=== PATIENT | female | born 1940 | race Caucasian/White ===

== ENCOUNTER → 2018-03-02 | Outpatient (CLI) | payer MEDICARE, OTHER | LOC: M WHC 14:30 | DX: Z13.828 Encounter for screening for other musculoskeletal disorder (principal); M85.851 Other specified disorders of bone density and structure, right thigh; M85.852 Other specified disorders of bone density and structure, left thigh | CPT/HCPCS: 77080 ==

== ENCOUNTER → 2018-05-03 | Outpatient (REF) | payer MEDICARE, OTHER ==
[2018-05-03 13:02] LABS: ALBUMIN 3.8 GM/DL (3.2-5.2); ALKALINE PHOSPHATASE 102 U/L (45-117); ALT/SGPT 20 U/L (12-78); ANION GAP 6 MEQ/L (8-16); AST/SGOT 21 U/L (7-37); BILIRUBIN,TOTAL 0.3 MG/DL (0.2-1.0); BLOOD UREA NITROGEN 19 MG/DL (7-18); CALCIUM LEVEL 9.4 MG/DL (8.8-10.2); CARBON DIOXIDE LEVEL 29 MEQ/L (21-32); CHLORIDE LEVEL 104 MEQ/L (98-107); CREATININE FOR GFR 0.92 MG/DL (0.55-1.30); GLOMERULAR FILTRATION RATE > 60.0 (>39); GLUCOSE, FASTING 98 MG/DL (70-100); PHOSPHORUS LEVEL 3.4 MG/DL (2.5-4.9); POTASSIUM SERUM 4.7 MEQ/L (3.5-5.1); SODIUM LEVEL 139 MEQ/L (136-145); TOTAL PROTEIN 7.6 GM/DL (6.4-8.2)
== END ==
LOC: M SFHCLERA 08:38
DX: M85.89 Other specified disorders of bone density and structure, multiple sites (principal); Z79.899 Other long term (current) drug therapy; Z23 Encounter for immunization
CPT/HCPCS: 84100

== ENCOUNTER 2018-05-28 16:04 | Observation (INO) | payer MEDICARE, OTHER ==
[2018-05-28 17:11] LABS: BASO % 0.3 % (0.0-1.0); EOS % 0.3 % (0.0-3.0); HEMATOCRIT 34.1 % (36.0-47.0); HEMOGLOBIN 11.8 g/dl (12.0-15.5); IMMATURE GRANULOCYTE % 0.4 % (0-3.0); LYMPH # 1.3 10^3/uL (1.5-4.5); LYMPH % 18.8 % (24.0-44.0); MEAN CORPUSCULAR HEMOGLOBIN 32.3 pg (27.0-33.0); MEAN CORPUSCULAR HGB CONC 34.6 g/dl (32.0-36.5); MEAN CORPUSCULAR VOLUME 93.4 fl (80.0-96.0); MONO # 0.7 10^3/uL (0.0-0.8); MONO % 9.7 % (0.0-5.0); NEUTROPHILS # 4.8 10^3/uL (1.8-7.7); NEUTROPHILS % 70.5 % (36.0-66.0); PLATELET COUNT, AUTOMATED 425 10^3/uL (150-450); RED BLOOD COUNT 3.65 10^6/uL (4.00-5.40); RED CELL DISTRIBUTION WIDTH 12.4 % (11.5-14.5); WHITE BLOOD COUNT 6.8 10^3/uL (4.0-10.0)
[2018-05-28 17:22] LABS: INR 0.83; PROTHROMBIN TIME 11.5 SECONDS (12.1-14.4)
[2018-05-28 17:23] LABS: PARTIAL THROMBOPLASTIN TIME 29.4 SECONDS (25.4-37.6)
[2018-05-28 17:36] LABS: ALBUMIN 3.3 GM/DL (3.2-5.2); ALBUMIN/GLOBULIN RATIO 0.89 (1.00-1.93); ALKALINE PHOSPHATASE 113 U/L (45-117); ALT/SGPT 21 U/L (12-78); ANION GAP 12 MEQ/L (8-16); AST/SGOT 31 U/L (7-37); BILIRUBIN,DIRECT 0.1 MG/DL (0.0-0.2); BILIRUBIN,TOTAL 0.3 MG/DL (0.2-1.0); BLOOD UREA NITROGEN 14 MG/DL (7-18); CALCIUM LEVEL 8.9 MG/DL (8.8-10.2); CARBON DIOXIDE LEVEL 20 MEQ/L (21-32); CHLORIDE LEVEL 96 MEQ/L (98-107); CPK CREATINE PHOSPHOKINASE 251 U/L (26-192); CREATININE FOR GFR 0.82 MG/DL (0.55-1.30); FREE T4 1.12 NG/DL (0.76-1.46); GLOMERULAR FILTRATION RATE > 60.0 (>39); GLUCOSE, FASTING 135 MG/DL (70-100); MAGNESIUM LEVEL 1.7 MG/DL (1.8-2.4); MB/CK RELATIVE INDEX 3.94 (< OR =4); POTASSIUM SERUM 4.2 MEQ/L (3.5-5.1); SODIUM LEVEL 128 MEQ/L (136-145); THYROID STIMULATING HORMONE 0.937 uIU/ML (0.358-3.740); TROPONIN I 0.02 NG/ML (< 0.10)
[2018-05-28 17:42] LABS: KETONE, URINE AUTO RFX TRACE mg/dL (NEGATIVE); MUCUS, URINE RFX SMALL (NEGATIVE); NITRITE, URINE AUTO RFX NEGATIVE (NEGATIVE); RBC, URINE AUTO RFX 5 /HPF (0-3); SPECIFIC GRAVITY UR AUTO RFX 1.016 (1.002-1.035); SQUAM EPITHELIAL CELL UR AURFX 1 /HPF (0-6); WBC, URINE AUTO RFX 4 /HPF (0-3)
[2018-05-28 17:44] LABS: LEUKOCYTE ESTERASE UR AUTO RFX TRACE (NEGATIVE)
[2018-05-28] MEDS: NS 500 ML IV ×2 (18:30)
[2018-05-28] MEDS: MAGNESIUM OXIDE 400 MG TAB (MAG-OX) PO ×2 (18:45)
[2018-05-28 19:09] LABS: INFLUENZA A AMPLIFICATION NEGATIVE (NEGATIVE); INFLUENZA B AMPLIFICATION NEGATIVE (NEGATIVE)
[2018-05-28] MEDS: NS 1,000 ML IV ×2 (19:18)
[2018-05-28] MEDS: RAMELTEON 8 MG TAB (ROZEREM) PO ×2 (22:12)
[2018-05-28] MEDS: HEPARIN SOD (PORCINE) 5000 UNITS/ML VIAL SC ×2 (23:09)
[2018-05-28] MEDS: ONDANSETRON 4MG/2ML VIAL (J2405) IV ×2 (23:10)
[2018-05-29] MEDS: NS 1,000 ML IV ×6 (00:28→21:09)
[2018-05-29] MEDS: HEPARIN SOD (PORCINE) 5000 UNITS/ML VIAL SC ×6 (05:37→21:08)
[2018-05-29] MEDS: ONDANSETRON 4MG/2ML VIAL (J2405) IV ×2 (05:37)
[2018-05-29 06:45] LABS: HEMATOCRIT 30.6 % (36.0-47.0); HEMOGLOBIN 10.8 g/dl (12.0-15.5); MEAN CORPUSCULAR HEMOGLOBIN 32.2 pg (27.0-33.0); MEAN CORPUSCULAR HGB CONC 35.3 g/dl (32.0-36.5); MEAN CORPUSCULAR VOLUME 91.3 fl (80.0-96.0); PLATELET COUNT, AUTOMATED 367 10^3/uL (150-450); RED BLOOD COUNT 3.35 10^6/uL (4.00-5.40); RED CELL DISTRIBUTION WIDTH 12.3 % (11.5-14.5); WHITE BLOOD COUNT 6.1 10^3/uL (4.0-10.0)
[2018-05-29 07:08] LABS: ANION GAP 9 MEQ/L (8-16); BLOOD UREA NITROGEN 7 MG/DL (7-18); CALCIUM LEVEL 7.7 MG/DL (8.8-10.2); CARBON DIOXIDE LEVEL 22 MEQ/L (21-32); CHLORIDE LEVEL 96 MEQ/L (98-107); CREATININE FOR GFR 0.49 MG/DL (0.55-1.30); GLOMERULAR FILTRATION RATE > 60.0 (>39); GLUCOSE, FASTING 118 MG/DL (70-100); MAGNESIUM LEVEL 1.5 MG/DL (1.8-2.4); POTASSIUM SERUM 3.9 MEQ/L (3.5-5.1); SODIUM LEVEL 127 MEQ/L (136-145)
[2018-05-29] MEDS: MAG SULF 1GM/100ML (MAG RUN) 1 GM in APPROPRIATE DILUENT 1 EA IV (10:44)
[2018-05-29] MEDS: OMEPRAZOLE 20 MG CAP PO ×2 (10:45)
[2018-05-29] MEDS: LISINOPRIL 20 MG TAB PO ×2 (10:45)
[2018-05-29] MEDS: VENLAFAXINE **XR** 75MG CAPSULE PO ×2 (10:45)
[2018-05-29] MEDS: OLMESARTAN MEDOXOMIL 20 MG TAB (BENICAR) PO ×2 (10:45)
[2018-05-29] MEDS: ACETAMINOPHEN TAB 650MG DOSE (2X325MG) PO ×6 (10:48→21:09)
[2018-05-29] MEDS: RAMELTEON 8 MG TAB (ROZEREM) PO ×2 (21:08)
[2018-05-30] MEDS: NS 1,000 ML IV ×2 (05:20)
[2018-05-30] MEDS: HEPARIN SOD (PORCINE) 5000 UNITS/ML VIAL SC ×2 (05:20)
[2018-05-30] MEDS: ACETAMINOPHEN TAB 650MG DOSE (2X325MG) PO ×2 (06:11)
[2018-05-30 08:00] LABS: BASO % 0.5 % (0.0-1.0); EOS # 0.1 10^3/uL (0.0-0.50); EOS % 2.2 % (0.0-3.0); HEMATOCRIT 27.9 % (36.0-47.0); HEMOGLOBIN 9.5 g/dl (12.0-15.5); IMMATURE GRANULOCYTE % 0.5 % (0-3.0); LYMPH % 16.1 % (24.0-44.0); MEAN CORPUSCULAR HEMOGLOBIN 32.3 pg (27.0-33.0); MEAN CORPUSCULAR HGB CONC 34.1 g/dl (32.0-36.5); MEAN CORPUSCULAR VOLUME 94.9 fl (80.0-96.0); MONO # 0.8 10^3/uL (0.0-0.8); MONO % 12.3 % (0.0-5.0); NEUTROPHILS # 4.4 10^3/uL (1.8-7.7); NEUTROPHILS % 68.4 % (36.0-66.0); PLATELET COUNT, AUTOMATED 312 10^3/uL (150-450); RED BLOOD COUNT 2.94 10^6/uL (4.00-5.40); RED CELL DISTRIBUTION WIDTH 12.3 % (11.5-14.5); WHITE BLOOD COUNT 6.4 10^3/uL (4.0-10.0)
[2018-05-30 08:21] LABS: MAGNESIUM LEVEL 1.9 MG/DL (1.8-2.4)
[2018-05-30 08:32] LABS: ALBUMIN 2.6 GM/DL (3.2-5.2); ALKALINE PHOSPHATASE 84 U/L (45-117); ALT/SGPT 28 U/L (12-78); ANION GAP 8 MEQ/L (8-16); AST/SGOT 38 U/L (7-37); BILIRUBIN,TOTAL 0.3 MG/DL (0.2-1.0); BLOOD UREA NITROGEN 5 MG/DL (7-18); CALCIUM LEVEL 7.7 MG/DL (8.8-10.2); CARBON DIOXIDE LEVEL 24 MEQ/L (21-32); CHLORIDE LEVEL 102 MEQ/L (98-107); CREATININE FOR GFR 0.42 MG/DL (0.55-1.30); GLOMERULAR FILTRATION RATE > 60.0 (>39); GLUCOSE, FASTING 84 MG/DL (70-100); POTASSIUM SERUM 3.6 MEQ/L (3.5-5.1); SODIUM LEVEL 134 MEQ/L (136-145); TOTAL PROTEIN 5.5 GM/DL (6.4-8.2)
[2018-05-30] MEDS: VENLAFAXINE **XR** 75MG CAPSULE PO ×2 (09:55)
[2018-05-30] MEDS: OMEPRAZOLE 20 MG CAP PO ×2 (09:55)
[2018-05-30] MEDS: LISINOPRIL 20 MG TAB PO ×2 (09:56)
[2018-05-30] MEDS: OLMESARTAN MEDOXOMIL 20 MG TAB (BENICAR) PO ×2 (09:56)
== END 2018-05-30 14:20 | disposition home or self-care (01) ==
LOC: M MSPAV 05-29 00:05 → M ED 16:04 → M ED INP 19:18
PROVIDERS: Internal Medicine
DX: K52.9 Noninfective gastroenteritis and colitis, unspecified (principal); I95.1 Orthostatic hypotension; E86.1 Hypovolemia; E83.42 Hypomagnesemia; E87.1 Hypo-osmolality and hyponatremia; Z79.899 Other long term (current) drug therapy; Z88.8 Allergy status to other drugs, medicaments and biological substances
CPT/HCPCS: J2405

== ENCOUNTER → 2019-02-08 | Outpatient (REF) | payer MEDICARE, OTHER ==
[~2019-02-08] MED LIST: FIORCAP3 PO; IRON65TA PO; LISI-538 PO; OLME20TA2 PO; OMEP20CA4 PO; VENL75CA2 PO; VITA50005 PO
[2019-02-08 13:18] LABS: CALCIUM LEVEL 9.6 MG/DL (8.8-10.2); CREATININE FOR GFR 1.06 MG/DL (0.55-1.30); GLOMERULAR FILTRATION RATE 53.2 (>39); POTASSIUM SERUM 5.4 MEQ/L (3.5-5.1)
== END ==
LOC: M SFHCLERA 09:34
PROVIDERS: ATTEND Family Medicine
DX: I10 Essential (primary) hypertension (principal)
CPT/HCPCS: 80048; 93005; G0463

== ENCOUNTER → 2019-02-25 | Outpatient (REF) | payer MEDICARE, OTHER ==
[2019-02-25 16:32] LABS: CREATININE FOR GFR 0.98 MG/DL (0.55-1.30); GLOMERULAR FILTRATION RATE 58.3 (>39); POTASSIUM SERUM 5.5 MEQ/L (3.5-5.1)
== END ==
LOC: M SFHCLERA 12:58
PROVIDERS: ATTEND Family Medicine
DX: I10 Essential (primary) hypertension (principal)

== ENCOUNTER → 2019-04-12 | Outpatient (REF) | payer MEDICARE, OTHER ==
[2019-04-12 16:53] LABS: CALCIUM LEVEL 9.2 MG/DL (8.8-10.2); CREATININE FOR GFR 1.04 MG/DL (0.55-1.30); GLOMERULAR FILTRATION RATE 54.4 (>39); POTASSIUM SERUM 4.5 MEQ/L (3.5-5.1)
== END ==
LOC: M SFHCLERA 09:38
PROVIDERS: ATTEND Family Medicine
DX: I10 Essential (primary) hypertension (principal)
CPT/HCPCS: 80048; G0463

== ENCOUNTER 2020-01-07 09:54 | Emergency (ER) | payer MEDICARE, OTHER ==
[~2020-01-07] VITALS: Ht 157.5 cm; Wt 49.7 kg
[~2020-01-07 09:54] MED LIST changes: +OMEP1CAP73 PO; -OMEP20CA4 PO
[2020-01-07] MEDS ORDERED: VENL75CA47 PO (10:04)
[2020-01-07] MEDS ORDERED: VITA50005 PO (10:04)
[2020-01-07 11:34] LABS: BASO % 0.2 % (0.0-1.0); EOS % 0.1 % (0.0-3.0); HEMATOCRIT 38.3 % (36.0-47.0); HEMOGLOBIN 13.5 g/dl (12.0-15.5); LYMPH # 1.1 10^3/uL (1.5-5.0); LYMPH % 8.8 % (24.0-44.0); MEAN CORPUSCULAR HEMOGLOBIN 32.8 pg (27.0-33.0); MEAN CORPUSCULAR HGB CONC 35.2 g/dl (32.0-36.5); MEAN CORPUSCULAR VOLUME 93.2 fl (80.0-96.0); MONO # 0.7 10^3/uL (0.0-0.8); MONO % 5.8 % (0.0-5.0); NEUTROPHILS # 10.2 10^3/uL (1.5-8.5); NEUTROPHILS % 84.8 % (36.0-66.0); PLATELET COUNT, AUTOMATED 371 10^3/uL (150-450); RED BLOOD COUNT 4.11 10^6/uL (4.00-5.40)
[2020-01-07 11:47] LABS: INR 0.87; PROTHROMBIN TIME 11.5 SECONDS (11.8-14.0)
--- NOTE | 2020-01-07 11:53 | REP ---
Single view chest: 01/07/2020. Indication: Dyspnea. Comparison: 05/28/2018. Findings: The lungs are clear. There is no pleural effusion or pneumothorax. The cardiac silhouette is normal in size. The thoracic aorta is tortuous. T9 compression deformity is stable. Impression: Clear lungs. Electronically Signed by Trevor Zambrano DO 01/07/2020 11:44 A
[2020-01-07 12:11] LABS: ALBUMIN 3.9 GM/DL (3.2-5.2); BILIRUBIN,DIRECT 0.2 MG/DL (0.0-0.2); BILIRUBIN,TOTAL 0.4 MG/DL (0.2-1.0); THYROID STIMULATING HORMONE 1.08 uIU/ML (0.358-3.740); THYROXINE (T4) 9.7 UG/DL (4.5-12.0)
[2020-01-07] MEDS ORDERED: ISOVUE-370 76% 100ML VIAL As Ordered ONE (12:56)
--- NOTE | 2020-01-07 13:48 | REP ---
CT brain: 01/07/2020. Indication: Confusion. Stroke. Technique: Unenhanced axial CT images of the brain were obtained from skull base to vertex with coronal reconstructions provided. Comparison: 11/19/2011. Findings: There is no acute intracranial hemorrhage, acute cortical infarction, mass effect or hydrocephalous. Age-related volume loss is present. There are patchy areas of cerebral hemisphere white matter hypoattenuation most consistent with chronic small vessel disease. The visualized paranasal sinuses and mastoid air cells are essentially clear. Impression: No acute intracranial process. Age related volume loss and sequelae of chronic microangiopathic ischemic disease. Electronically Signed by Trevor Zambrano DO 01/07/2020 01:40 P
--- NOTE | 2020-01-07 14:02 | REP ---
CT chest, abdomen and pelvis: 01/07/2020. Indication: Chest pain. Dyspnea. Abdominal pain. Technique: Axial images of the chest, abdomen and pelvis were obtained following IV contrast administration with sagittal and coronal reconstructions provided. Dedicated PE protocol of the chest was performed. Comparison: 05/29/2018. Findings: There is no evidence of pulmonary embolism. The lungs are clear. There is no pleural effusion or pneumothorax. Multiple abdominal surgical clips are present status post partial gastrectomy. There is no evidence of bowel obstruction. The liver, gallbladder and kidneys appear normal. No free intraperitoneal air is present. No acute vascular abnormalities are present. The urinary bladder appears normal. Diverticulosis is noted without evidence of diverticulitis. Thoracolumbar degenerative sequelae are redemonstrated. No new compression fracture. Impression: No pulmonary embolism. No bowel obstruction or free intraperitoneal air. Postoperative sequelae. Innumerable diverticulosis without diverticulitis. Electronically Signed by Trevor Zambrano DO 01/07/2020 01:54 P
[2020-01-07 15:54] VITALS: BP 148/79
--- NOTE | 2020-01-08 16:02 | ECGEPIP ---
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
--- NOTE | 2020-01-08 16:05 | ECGEPIP ---
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
== END 2020-01-07 16:11 | disposition home or self-care (01) ==
LOC: M ED 09:54
DX: R53.81 Other malaise (principal); R53.1 Weakness; R00.0 Tachycardia, unspecified; I10 Essential (primary) hypertension; Z79.899 Other long term (current) drug therapy; Z88.6 Allergy status to analgesic agent
CPT/HCPCS: 36415; 36600; 70450; 71045; 71275; 74177; 80047; 80076; 81001; 82803; 83605; 83880; 84436; 84443; 84484; 85025; 85610; 87040; 87486; 87581; 87633; 87798; 93005; 93041; 99285; Q9967

== ENCOUNTER 2020-01-11 10:27 | Inpatient (IN) | payer MEDICARE, OTHER ==
[~2020-01-11] VITALS: Ht 157.5 cm; Wt 47.4 kg
[~2020-01-11 10:27] MED LIST changes: +VENL75CA47 PO
[2020-01-11] MEDS ORDERED: CHLO125TA PO (10:46)
--- NOTE | 2020-01-11 11:45 | REP ---
CT BRAIN: 01/11/2020 INDICATION: Head trauma. TECHNIQUE: Unenhanced axial CT images of the brain were obtained from the skull base to the vertex with coronal reconstructions provided. COMPARISON: None. FINDINGS: There is no acute intracranial hemorrhage, acute cortical infarction, mass-effect, hydrocephalus or acute calvarial fracture. Small right sphenoid sinus retention cyst is noted. Age-related volume loss is present. There are patchy areas of cerebral hemisphere white matter hypo attenuation most consistent with chronic small vessel disease. IMPRESSION: No acute intracranial process. Age-related volume loss consistent with microangiopathic ischemic disease. Electronically Signed by Trevor Zambrano DO 01/13/2020 08:36 A
--- NOTE | 2020-01-11 11:46 | REP ---
Sitting AP chest x-ray: Single view. History: Weakness. Comparison chest x-ray: January 07, 2020. Findings: Monitoring electrodes overlie the chest. There are surgical clips in the upper abdomen on the left. The heart is near the upper range of normal in size but unchanged. There is tortuosity in the thoracic aorta as before. Osteoporosis is seen and there is wedging of two adjacent lower thoracic vertebrae. No infiltrate is seen. No pleural effusion or pulmonary edema is seen. Pulmonary vasculature is not increased. Impression: No active cardiopulmonary disease. Electronically Signed by Emeterio Kc MD 01/11/2020 11:38 A
--- NOTE | 2020-01-11 11:49 | REP ---
CT CERVICAL SPINE: 01/11/2020 INDICATION: Cervical spine trauma. TECHNIQUE: Unenhanced axial CT images of the cervical spine were obtained with coronal and sagittal reconstructions provided. COMPARISON: None. FINDINGS: There is no acute fracture, subluxation or dislocation. Multilevel spondylosis is present without severe narrowing of the spinal canal. There is no evidence of spinal canal hemorrhage or additional acute posttraumatic abnormalities. The visualized lungs are clear. There is minimal anterolisthesis of C4 on C5. There is straightening of the cervical lordosis. IMPRESSION: No acute posttraumatic abnormalities of the cervical spine. Electronically Signed by Trevor Zambrano DO 01/13/2020 08:36 A
[2020-01-11 12:10] LABS: INR 0.89; PROTHROMBIN TIME 11.7 SECONDS (11.8-14.0)
[2020-01-11 12:11] LABS: PARTIAL THROMBOPLASTIN TIME 29.8 SECONDS (25.0-38.4)
[2020-01-11 12:33] LABS: BASO % 0.1 % (0.0-1.0); HEMOGLOBIN 13.4 g/dl (12.0-15.5); LYMPH # 0.6 10^3/uL (1.5-5.0); LYMPH % 5.2 % (24.0-44.0); MEAN CORPUSCULAR HGB CONC 37.2 g/dl (32.0-36.5); MEAN CORPUSCULAR VOLUME 88.7 fl (80.0-96.0); MONO # 0.9 10^3/uL (0.0-0.8); MONO % 8.8 % (0.0-5.0); NEUTROPHILS % 85.5 % (36.0-66.0); PLATELET COUNT, AUTOMATED 374 10^3/uL (150-450); RED BLOOD COUNT 4.06 10^6/uL (4.00-5.40); WHITE BLOOD COUNT 10.5 10^3/uL (4.0-10.0)
[2020-01-11] MEDS ORDERED: NS 1,000 ML IV SCH (12:54)
[2020-01-11] MEDS: METOPROLOL 5 MG/5 ML VIAL IV SCH ×3 (13:05→13:13)
[2020-01-11] MEDS ORDERED: FERR1TAB8 PO (13:16)
[2020-01-11] MEDS ORDERED: BUTA-198 PO (13:16)
[2020-01-11 13:24] LABS: ALBUMIN 3.5 GM/DL (3.2-5.2); BILIRUBIN,DIRECT 0.1 MG/DL (0.0-0.2); BILIRUBIN,TOTAL 0.3 MG/DL (0.2-1.0); CALCIUM LEVEL 9.2 MG/DL (8.8-10.2); CK-MB VALUE MASS 89.7 NG/ML (<3.6); CREATININE FOR GFR 1.27 MG/DL (0.55-1.30); FREE T4 1.04 NG/DL (0.76-1.46); GLOMERULAR FILTRATION RATE 43.1 (>32); POTASSIUM SERUM 4.4 MEQ/L (3.5-5.1); THYROID STIMULATING HORMONE 0.792 uIU/ML (0.358-3.740); TOTAL PROTEIN 7.6 GM/DL (6.4-8.2); TROPONIN I 0.1 NG/ML (< 0.10)
[2020-01-11 13:26] LABS: MB/CK RELATIVE INDEX 1.02 (< OR =4)
--- NOTE | 2020-01-11 14:04 | REP ---
REASON: Trauma. AP pelvis and two views of the right hip were obtained. The bones are demineralized. There are bilateral hip degenerative changes with asymmetric joint space narrowing and mild buttressing. Chronic changes are seen involving the imaged portion of the spine. There is no evidence of an acute fracture, dislocation or subluxation. Electronically Signed by Juno Felder DO 01/11/2020 05:03 P
[2020-01-11] MEDS ORDERED: ISOVUE-370 76% 100ML VIAL As Ordered ONE (14:09)
--- NOTE | 2020-01-11 15:23 | REP ---
REASON: Posttraumatic right flank pain. COMPARISON: 01/07/2020 CONTRAST: 100 mL Isovue 370. The prior examination showed no renal abnormality. There is no change in the lung bases. The gallbladder is hydropic but unchanged. The liver, spleen, pancreas, adrenal glands, kidneys appear to be unchanged. There is a Bosniak class 1 stable simple left renal cyst. There is a tiny right renal cyst and a tiny cyst in the inferior pole of the left kidney as well. These are all stable and have been so for many years. The abdominal aorta and para-aortic regions are unchanged. The bowel loops and their mesenteries are unchanged. No free fluid or free air is in the abdomen or pelvis. There is no intra-abdominal or intrapelvic mass. There is no change in the osseous structures. IMPRESSION: No change. No acute abnormality. Electronically Signed by Juno Felder DO 01/11/2020 05:05 P
[2020-01-11 15:36] LABS: CREATININE,RANDOM URINE 32.8 MG/DL
[2020-01-11] MEDS ORDERED: SODIUM CHLORIDE 3% 500 ML IV SCH (16:00)
[2020-01-11] MEDS ORDERED: MOM 30ML SUSPENSION UDC PO PRN (16:15)
[2020-01-11] MEDS ORDERED: ACETAMINOPHEN TAB 650MG DOSE (2X325MG) PO PRN (16:15)
--- NOTE | 2020-01-11 16:21 | HPEPDOC ---
General Date of Admission 01/11/2020 Date of Service: Jan 11, 2020 Chief Complaint The patient is a 79-year-old female admitted with a reason for visit of Weakness. Source: Patient, Family Exam Limitations: Hard of hearing Timing/Duration: Week(s) (1) Severity: Moderate Associated Symptoms: Vomiting, Weakness, Dizziness History of Present Illness Pt is a 79 yo female with PMH of HTN presented to [facility] due to generalized weakness that has been worsening for the past week. was at bedside and part of hx was obtained from pt's as she is very hard of hearing, and it was noted that at baseline pt has some memory problem. She had 3 falls in total in the past week with 2 falls 2 days prior to admission, with one she fell backwards while sitting on bathtub and later at n ight she slide off the bed; pt is unable to recall if she hit any part of the body during these 2 falls. Pt fell again last night face down and hit right sided jaw, face, and left elbow. Pt reported that at the time of the fall she felt lightheadedness and dizziness without vertigo. reported that pt' has Chlorthalidone added 1 week ago in replacement of a medication that he could not recall. Per clinic record she had chlorthalidone 25mg sent 01/03/2020. Frequent urination every 1H reported by pt. She denies any pain in the body at this time, and both and pt reported pt did not hit her head. Pt denies any chest pain, palpitation, dyspnea, numbness, tingling, loss of sensation, a bdominal pain, constipation, dysuria, or blood in stool. It was noted that she had an episode of emesis 01/06/2020 and she had been reporting no nausea since then. reported that pt has been having frequent diarrhea currently which she has had intermittently for years. Home Medications Scheduled Chlorthalidone (Chlorthalidone) 25 Mg Tablet, 25 MG PO DAILY, (Reported) Ergocalciferol (Vitamin D2) (Vitamin D2) 50,000 Units Cap, 50,000 UNIT PO QWEEK, (Reported) SUNDAYS Ferrous Sulfate (Ferrous Sulfate) 325 Mg Tablet, 325 MG PO DAILY, (Reported) Olmesartan Medoxomil (Olmesartan Medoxomil) 20 Mg Tab, 20 MG PO DAILY, (Reported) Omeprazole (Omeprazole) 20 Mg Cap, 20 MG PO DAILY, (Reported) Venlafaxine HCl (Venlafaxine HCl ER) 75 Mg Cap.er.24h, 75 MG PO DAILY, (Reported) Scheduled PRN Butalb/Acetaminophen/Caffeine (Iizhpj-Ixqwlthp-Kwrp 50-325-40) 1 Each Tablet, 1 TAB PO Q4H PRN for MIGRAINE, (Reported) Allergies Coded Allergies: NSAIDS (Non-Steroidal Anti-Inflamma (Verified Adverse Reaction, Unknown, BLEEDING ULCERS, 01/07/20) Past Medical History Medical History hypertension chronic anemia Hyponatremia Hypomagnesemia Osteoporosis Severe PUD Surgical History stomach surgery 1976, 1980, and 1990, 1994, 1995, and 1999 Family History Family history was reviewed and is noncontributory to the current hospitalization Social History * Smoker: Denies lives in [place] in the winter A-FIB/CHADSVASC A-FIB History Current/History of A-Fib/PAF?: No Review of Systems Constitutional: Reports: Weakness, Other (lightheadedness and dizziness); Denies: Chills, Fever Pulmonary: Denies: Dyspnea Cardiovascular: Denies: Chest Pain, Palpitations Gastrointestinal: Reports: Diarrhea; Denies: Nausea, Vomiting, Abdominal Pain, Constipation, Hematochezia Genitourinary: Reports: Frequency; Denies: Dysuria, Hematuria Musculoskeletal: Reports: Back Pain (chronic back pain) Neurological: Denies: Change in speech, Confusion Physical Examination General Exam: Positive: Alert, Other (frail/weak) Eye Exam: Positive: Conjunctiva & lids normal, EOMI; Negative: Sclera icteric ENT Exam: Positive: Atraumatic, Other ENT (dry mucous membrane) Neck Exam: Positive: Supple Chest Exam: Positive: Clear to auscultation, Normal air movement; Negative: Rales, Rhonchi, Wheezing Heart Exam: Positive: Tachycardic, Normal S1, Normal S2; Negative: Murmurs Abdomen Exam: Positive: Normal bowel sounds, Soft; Negative: Tenderness Extremity Exam: Positive: Other (+2/5 in b/l UE and +3/5 in b/l LE); Negative: Edema, Swelling Skin Exam: Positive: Other skin issue (decreased skin turgor. Ecchymosis about [id number] in right jaw); Negative: Nl turgor and temperature Neuro Exam: Positive: Sensation Intact, Cranial Nerves 3-12 NL, Other (mildly slow speech) Psych Exam: Positive: Mental status NL, Anxiety (mild), Oriented x 3; Negative: Memory Intact Vital Signs Vital Signs Date Time Temp Pulse Resp B/P (MAP) Pulse Ox O2 Delivery O2 Flow Rate FiO2 01/11/20 15:15 105 18 98 Room Air 01/11/20 15:00 180/87 (118) 01/11/20 14:56 97.1 Laboratory Data Labs 24H Laboratory Tests 2 01/11/20 11:37: Immature Granulocyte % (Auto) 0.4, Neutrophils (%) (Auto) 85.5H, Lymphocytes (%) (Auto) 5.2L, Monocytes (%) (Auto) 8.8H, Eosinophils (%) (Auto) 0.0, Basophils (%) (Auto) 0.1, Neutrophils # (Auto) 9.0H, Lymphocytes # (Auto) 0.6L, Monocytes # (Auto) 0.9H, Eosinophils # (Auto) 0.0, Basophils # (Auto) 0.0, Nucleated Red Blood Cells % (auto) 0.0, Prothrombin Time 11.7L, Prothromb Time International Ratio 0.89, Activated Partial Thromboplast Time 29.8, Anion Gap 11, Glomerular Filtration Rate 43.1, Calcium Level 9.2, Total Bilirubin 0.3, Direct Bilirubin 0.1, Aspartate Amino Transf (AST/SGOT) 264H, Alanine Aminotransferase (ALT/SGPT) 74, Alkaline Phosphatase 120H, Total Creatine Kinase 8709H, Creatine Kinase MB 89.7H, Creatine Kinase MB Relative Index 1.02, Troponin I 0.10, Total Protein 7.6, Albumin 3.5, Albumin/Globulin Ratio 0.9L, Lipase 26L, Thyroid Stimulating Hormone (TSH) 0.792, Free Thyroxine 1.04 01/11/20 15:00: Urine Random Osmolality 407L, Urine Random Creatinine 32.8, Urine Random Sodium 56 CBC/BMP Laboratory Tests 01/11/20 11:37 Assessment/Plan 1. Hypo-osmotic, hypovolemic severe hyponatremia 2/2 diuretic use, symptomatic. Na 114 today with Na 128 on 01/07/2020 ER visit. Pt has been taking chlorthiadone and Olmesartan for a week; hold both medication. Nephro was consulted and pt has received IV NS now started on IV 3% saline at rate of 40ml/hrX3 hrs. A episode of emesis and generalized weakness. Recheck BMP Q2HX10 or per nephro recommendation. R/o adrenal insufficiency with morning cortisol and ACTH ordered. TSH and T4 done in ER were wnl. Fall and seizure precaution. PT/OT. 3% NaCl noted to be started around 1518 confirmed with ER. Nephro has been consulted for fluid management 2. Fall from generalized weakness 2/2 hyponatremia. Fall precaution. PT/OT. Head CT, Abd/pelvis CT, right hip/pelvis X ray, and CXR showed no acute abnormality. reported pt hit her left elbow 01/10/2020 after fall from weakness, left complete elbow X ray ordered. 2. Transaminitis likely 2/2 ischemic liver perfusion from hypovolemia 2/2 diuretic use. Pt on IV fluid now. Cont to monitor liver profile. Avoid Tylenol 3. Elevated CK-MB likely 2/2 muscle damage hyponatremia vs fall, unlikely d/t CAD/ACS. Pt denies any chest pain for the past week or now. Trend cardiac marker 4. Diarrhea, reported to be chronic intermittent, likely IBS vs bacteria overgrowth. Pt's reported pt currently having watery diarrhea at least 3 BM a day, but reported she had this problem intermittently for years. Pt denies any abdominal pain or blood in stool. Pt lives in [place] in the winter and was noted to return in November. GI panel and covid ordered. 5. Chronic back pain. Will hold pt's home med Venlafaxine at this time as it may cause hyponatremia/SIADH although not the main cause of pt's hyponatremia 6. Peptic ulcer disease. Hx of peptic ulcer disease. Cont home med omeprazole 7. HTN. Hold home med chlorthiadone and Olmesartan. May give metoprolol if elevated BP and/or tachycardic DVT prophylaxis: heparin SC GI prophylaxis: Pt has PUD on omeprazole at home Plan / VTE VTE Prophylaxis Ordered?: Yes Plan IVF: Initiate Diet: Advance Activity: Bedrest Therapy: PT, OT Diagnostics: Check Labs, Repeat Labs in AM, Obtain Cultures Anticipated Discharge: Home GME ATTESTATION GME ATTESTATION My faculty preceptor for this patient encounter was physically present during the encounter and was fully available. All aspects of the patient interview, examination, medical decision making process, and medical care plan development were reviewed and approved by the faculty preceptor. The faculty preceptor is aware and concurs with the plan as stated in the body of this note and will attest to such by his/her cosignature. ATTENDING NOTE I, Patricio Prieto, have independently examined this patient and performed my own physical exam, as well as reviewed the documentation and edited where necessary. I have discussed in detail with the resident / student the findings and plan of treatment as documented by the resident / student and edited their note. I agree with their findings and treatment plan and have edited their documentation. I will continue to follow the patient during this hospital stay. ARVIND SHEN DO Jan 11, 2020 16:21 PATRICIO PRIETO MD Jan 11, 2020 19:02
[2020-01-11 18:43] LABS: CALCIUM LEVEL 8.4 MG/DL (8.8-10.2); CREATININE FOR GFR 0.99 MG/DL (0.55-1.30); GLOMERULAR FILTRATION RATE 57.5 (>32); POTASSIUM SERUM 3.3 MEQ/L (3.5-5.1)
[2020-01-11 18:48] LABS: ALBUMIN 3.3 GM/DL (3.2-5.2); BILIRUBIN,DIRECT 0.2 MG/DL (0.0-0.2); BILIRUBIN,TOTAL 0.4 MG/DL (0.2-1.0); TOTAL PROTEIN 6.7 GM/DL (6.4-8.2)
[2020-01-11 19:06] LABS: MB/CK RELATIVE INDEX 0.96 (< OR =4); TROPONIN I 0.1 NG/ML (< 0.10)
[2020-01-11 19:20] LABS: FREE T4 1.07 NG/DL (0.76-1.46); THYROID STIMULATING HORMONE 0.561 uIU/ML (0.358-3.740)
[2020-01-11 19:25] VITALS: BP 142/87
[2020-01-11 20:00] VITALS: BP 133/74
[2020-01-11 20:38] VITALS: BP 127/64
[2020-01-11 20:45] LABS: CALCIUM LEVEL 8.8 MG/DL (8.8-10.2); CREATININE FOR GFR 0.99 MG/DL (0.55-1.30); GLOMERULAR FILTRATION RATE 57.5 (>32); MAGNESIUM LEVEL 1.9 MG/DL (1.8-2.4); PHOSPHORUS LEVEL 2.4 MG/DL (2.5-4.9); POTASSIUM SERUM 3.2 MEQ/L (3.5-5.1)
[2020-01-11] MEDS ORDERED: POTASSIUM CHLORIDE 10% LIQ 20 MEQ/15 ML UDC PO ONE (20:45)
[2020-01-11 21:00] VITALS: BP 132/60
[2020-01-11] MEDS: DOCUSATE SODIUM 100 MG CAP PO SCH (21:00)
[2020-01-11] MEDS: HEPARIN SOD (PORCINE) 5000UNITS/ML VIAL (J1644 PER 1000UNITS) SC SCH (21:11)
[2020-01-11 22:30] LABS: BLOOD UREA NITROGEN 21 MG/DL (7-18); CARBON DIOXIDE LEVEL 23 MEQ/L (21-32); CHLORIDE LEVEL 89 MEQ/L (98-107); CREATININE FOR GFR 0.89 MG/DL (0.55-1.30); GLOMERULAR FILTRATION RATE > 60.0 (>32); GLUCOSE, FASTING 140 MG/DL (70-100); POTASSIUM SERUM 4.4 MEQ/L (3.5-5.1); SODIUM LEVEL 121 MEQ/L (136-145)
[2020-01-12] VITALS (13 sets, daily range): BP systolic 98–149; BP diastolic 27–76
[2020-01-12 00:43] LABS: BLOOD UREA NITROGEN 19 MG/DL (7-18); CALCIUM LEVEL 8.9 MG/DL (8.8-10.2); CARBON DIOXIDE LEVEL 23 MEQ/L (21-32); CHLORIDE LEVEL 90 MEQ/L (98-107); CREATININE FOR GFR 0.88 MG/DL (0.55-1.30); GLOMERULAR FILTRATION RATE > 60.0 (>32); GLUCOSE, FASTING 116 MG/DL (70-100); POTASSIUM SERUM 4.2 MEQ/L (3.5-5.1); SODIUM LEVEL 122 MEQ/L (136-145)
--- NOTE | 2020-01-12 01:15 | ECGEPIP ---
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
[2020-01-12 02:46] LABS: BLOOD UREA NITROGEN 21 MG/DL (7-18); CALCIUM LEVEL 8.4 MG/DL (8.8-10.2); CARBON DIOXIDE LEVEL 25 MEQ/L (21-32); CHLORIDE LEVEL 91 MEQ/L (98-107); CREATININE FOR GFR 0.85 MG/DL (0.55-1.30); GLOMERULAR FILTRATION RATE > 60.0 (>32); GLUCOSE, FASTING 104 MG/DL (70-100); POTASSIUM SERUM 4.1 MEQ/L (3.5-5.1); SODIUM LEVEL 125 MEQ/L (136-145)
[2020-01-12 04:42] LABS: HEMATOCRIT 33.1 % (36.0-47.0); MEAN CORPUSCULAR HEMOGLOBIN 32.2 pg (27.0-33.0); MEAN CORPUSCULAR HGB CONC 36.3 g/dl (32.0-36.5); MEAN CORPUSCULAR VOLUME 88.7 fl (80.0-96.0); PLATELET COUNT, AUTOMATED 357 10^3/uL (150-450); RED BLOOD COUNT 3.73 10^6/uL (4.00-5.40); WHITE BLOOD COUNT 8.1 10^3/uL (4.0-10.0)
[2020-01-12 05:07] LABS: BLOOD UREA NITROGEN 20 MG/DL (7-18); CALCIUM LEVEL 8.3 MG/DL (8.8-10.2); CARBON DIOXIDE LEVEL 23 MEQ/L (21-32); CHLORIDE LEVEL 92 MEQ/L (98-107); GLOMERULAR FILTRATION RATE > 60.0 (>32); GLUCOSE, FASTING 96 MG/DL (70-100); POTASSIUM SERUM 3.9 MEQ/L (3.5-5.1); SODIUM LEVEL 125 MEQ/L (136-145)
[2020-01-12] MEDS: HEPARIN SOD (PORCINE) 5000UNITS/ML VIAL (J1644 PER 1000UNITS) SC SCH ×3 (06:11→20:21)
[2020-01-12 06:21] LABS: BLOOD UREA NITROGEN 19 MG/DL (7-18); CALCIUM LEVEL 8.5 MG/DL (8.8-10.2); CARBON DIOXIDE LEVEL 22 MEQ/L (21-32); CHLORIDE LEVEL 91 MEQ/L (98-107); CREATININE FOR GFR 0.81 MG/DL (0.55-1.30); GLOMERULAR FILTRATION RATE > 60.0 (>32); GLUCOSE, FASTING 102 MG/DL (70-100); POTASSIUM SERUM 3.9 MEQ/L (3.5-5.1); SODIUM LEVEL 126 MEQ/L (136-145)
[2020-01-12] MEDS: OMEPRAZOLE 20 MG CAP PO SCH (07:53)
[2020-01-12] MEDS: DOCUSATE SODIUM 100 MG CAP PO SCH ×2 (07:53→20:21)
[2020-01-12] MEDS: FERROUS SULFATE 325MG TAB PO SCH (07:53)
--- NOTE | 2020-01-12 08:27 | CR ---
DATE OF CONSULTATION: 01/11/2020 REQUESTING PHYSICIAN: Dr. Sven Levine in the emergent room. CONSULTING PHYSICIAN: Dr. Jurado. REASON FOR CONSULTATION: Management of hyponatremia. CHIEF COMPLAINT: The patient was brought into to the emergency room because of generalized weakness, dizziness and inability to walk NOTE: History was obtained from the patient's and from the chart, the patient herself is not able to provide a reliable history. HISTORY OF PRESENT ILLNESS: Ange Thomson is an 79 year old female with past medical history of hypertension, osteoporosis, and peptic ulcer disease. As reported by the , the patient's antihypertensive medication was recently changed and chlorthalidone was given to the patient about 10 days ago, and ever since she started taking chlorthalidone she started getting more and more confused and obtunded. She was brought with the same symptoms to the emergency room about 4 days ago on Thursday. She was kept in the emergency room for a few hours and after that she was discharged home. On that day, her sodium level was 128. Even after going home, her symptoms did not get better. She was getting more and more weakness and lethargic was getting more forgetful. She was even unable to get out of bed and she was falling multiple times. She was finally brought to the emergency room by the . When she arrived in the emergency room, she was found to have a serum sodium of 114. She had a creatinine of 1.27. The ER physician, Dr. Levine, discussed the patient with myself and decision was made to give the patient hypertonic saline at 40 mL an hour for a total of 3 hours because of severe symptomatic hyponatremia. The patient needed my immediate attention. I emergently saw the patient at bedside in the emergency room today in the evening. Her was also present at the bedside. Her sodium has improved after 3 hours of hypertonic saline from 114 to 122 and her reports that her symptoms are almost 70% better since the time she came to the emergency room. PAST MEDICAL HISTORY: Past medical history of hypertension, anemia, hyponatremia, hypomagnesemia, osteoporosis, and peptic ulcer disease. PAST SURGICAL HISTORY: History of multiple stomach surgeries in the past. ALLERGIES: She is allergic to NSAID. FAMILY HISTORY: No significant family history of end-stage renal disease requiring hemodialysis. SOCIAL HISTORY: The patient lives with her and they spend the winter in [place]. There is no history of smoking, illicit drug abuse or alcohol abuse. REVIEW OF SYSTEMS: I was unable to do any reliable review of systems. The patient is confused and she is very hard of hearing. She was sitting up and she was able to follow commands and answer a few questions. Most of the history was obtained from the patient's . PHYSICAL EXAMINATION: General: The patient is awake, alert, oriented x1, sitting up in the bed, in no apparent distress. Vital Signs: Temperature is 98.3 degrees Fahrenheit, blood pressure 145/65, pulse is 101, respiratory rate of 18, saturating 98% on room air. Head and Neck Exam: Extraocular muscles intact. Pupils equally round and reactive to light. Mucous membranes are moist. Neck is supple. There is no jugular venous distention (JVD). Cardiovascular: S1, S2. Tachycardia. No edema of the bilateral lower extremities. Respiratory: Chest is clear to auscultation bilaterally. Bilateral equal air entry. No rales or rhonchi. Abdomen: Soft. Positive bowel sounds. Nontender. No organomegaly. Musculoskeletal: No clubbing or cyanosis. Pulses are 2+. Skin: No rashes or ulcers. MORNING NEWS ANCHOR: No focal deficit. Power is 5/5 in all extremities. LAB REVIEW: CBC showed a WBC of 10.5, hemoglobin 13.4 and platelets are 374. INR is 0.89. Urine showed random osmolality of 407, random creatinine of 32.8, random sodium of 56. BMP on arrival showed sodium 144, potassium 4.4, chloride 85, bicarb 18, BUN 28, creatinine 1.27, calcium 9.2, total bilirubin 0.3, AST 264, ALT 74, alkaline phosphatase is 120. CPK is 8709. Repeat BMP after hypertonic saline showed sodium 122, potassium 3.3, chloride 88, bicarb 22, BUN 23, creatinine 0.9, and calcium 8.4. Cortisol is 50.4. TSH is 0.563. T4 is 1.07. Serum osmolality is 257. COVID-19 serology is cancelled. Respiratory viral panel is negative. IMAGING: The patient had CT scan of the head and C-spine, chest x-ray, hip and pelvis x-ray, and CT scan of the abdomen and pelvis, which did not show any pathology. HOME MEDICATIONS: The patient's home medications include chlorthalidone 25 mg by mouth daily, vitamin D 50,000 units once a week, iron tablet 325 mg by mouth daily, atorvastatin 20 mg by mouth daily, omeprazole 20 mg by mouth daily and venlafaxine 75 mg by mouth daily. ASSESSMENT: 79-year-old female with history of hypertension, recent change in medication, admitted this time with severe symptomatic hyponatremia. PLAN: 1. Severe symptomatic hyponatremia. 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 Avoid further use of thiazide diuretics in this patient. Avoid use of GAURANG inhibitors or ARB at this time as well. She was given hypertonic saline in the emergency room. Sodium corrected from 114 to 122, which is adequate for today. Continue BMP monitoring every 2 hours. I would keep the patient's sodium less than 125 overnight. Further correction will be done tomorrow morning. I believe that after stopping the thiazide diuretics, she should start the correcting herself. She would probably not need further use of hypertonic saline. Keep the patient for monitoring in the ICU overnight. 2. Hypokalemia. The patient was given potassium chloride 40 mEq by mouth x1 dose. Further potassium repletion will be done according to the labs. 3. Elevated CPK level. The patient most likely had mild rhabdomyolysis because of her recurrent falls at home. I would avoid IV fluid hydration with normal saline in this patient with high urine osmolality because it will make hyponatremia worse in this scenario. 3. Hypertension. Blood pressure is acceptable at this time. Avoid use of GAURANG and ARB at this time. Avoid any further use of thiazide diuretics in the future. Further antihypertensives will be adjusted tomorrow morning. 4. Iron deficiency anemia. Hemoglobin level is adequate. Okay to use current use of ferrous sulfate. 5. Tachycardia. The patient has sinus tachycardia. Continue telemetry monitoring in the ICU. Heart rate is improving now with improvement in the sodium levels. Thank you for involving me in the care of this patient. I shall be happy to follow the patient along with you tomorrow morning. Total critical care time spent in the management of this patient today evening in the ICU was 70 minutes, excluding all the procedures.
--- NOTE | 2020-01-12 08:29 | REP ---
Left elbow series: Four views. History: Injury in a fall. Findings: Four views left elbow demonstrate mild triceps tendon insertion on the proximal ulna. No evidence of hemarthrosis or fracture. There is mild diffuse osteopenia. Impression: No fracture seen. Electronically Signed by Emeterio Kc MD 01/12/2020 08:21 A
--- NOTE | 2020-01-12 08:33 | IPNPDOC ---
Subjective Date Seen The patient was seen on 01/12/20. Subjective Chief Complaint/HPI Pt was examined at bedside. She denies any chest pain, palpitation, dyspnea, nausea, vomiting, dizziness, lightheadedness, or abdominal pain. General: Denies: Chills Constitutional: Denies: Chills, Fever ENT: Denies: Dysphagia Pulmonary: Denies: Dyspnea Cardiovascular: Denies: Chest Pain, Palpitations Gastrointestinal: Denies: Nausea, Vomiting, Abdominal Pain Objective Physical Examination General Exam: Positive: Alert, Other (frail/weak) Eye Exam: Positive: Conjunctiva & lids normal, EOMI; Negative: Sclera icteric ENT Exam: Positive: Atraumatic, Other ENT (mildly dry mucous membrane) Neck Exam: Positive: Supple Chest Exam: Positive: Clear to auscultation, Normal air movement; Negative: Rales, Rhonchi, Wheezing Heart Exam: Positive: Tachycardic, Normal S1, Normal S2; Negative: Murmurs Abdomen Exam: Positive: Normal bowel sounds, Soft; Negative: Tenderness Extremity Exam: Positive: Other (+4/5 in all 4 extremities); Negative: Edema, Swelling Skin Exam: Positive: Other skin issue (decreased skin turgor. Ecchymosis about [id number] in right jaw); Negative: Nl turgor and temperature Neuro Exam: Positive: Sensation Intact, Cranial Nerves 3-12 NL, Other (mildly slow speech) Psych Exam: Positive: Mental status NL, Mood NL, Memory Intact, Oriented x 3; Negative: Anxiety Assessment /Plan Assessment Pt is a 79 yo female presented to [facility] d/t generalized weakness with fall found to have hyponatremia Na 114 received IV NS and 3%saline for hyponatremia followed by nephro with Na improving 1. 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 Na 114 upon admission with Na 128 on 01/07/2020 ER visit. Pt has been taking chlorthiladone and Olmesartan for a week; hold both medication. Nephro following. Pt received NS, 3%saline, NS, and 1 dose tolvaptan 15 mg. BMP Q4H with goal to increased Na 6meq in the next 24hr and transitioning to oral salt tablets and loop diuretic recommended by nephrology. 2. Fall from generalized weakness 2/2 hyponatremia. Fall precaution. PT/OT. Head CT, Abd/pelvis CT, right hip/pelvis X ray, and CXR showed no acute abnormality. reported pt hit her left elbow 01/10/2020 after fall from weakness, left complete elbow X ray showed no acute fracture 2. Transaminitis likely 2/2 ischemic liver perfusion from hypovolemia 2/2 diuretic use. Pt on IV fluid now. Cont to monitor liver profile. Avoid Tylenol 3. Elevated CK-MB likely 2/2 muscle damage hyponatremia vs fall, unlikely d/t CAD/ACS. Pt denies any chest pain for the past week and cont to deny chest pain. Trop negX3 4. Diarrhea, reported to be chronic intermittent, likely IBS vs bacteria overgrowth. Pt's reported pt currently having watery diarrhea at least 3 BM a day, but reported she had this problem intermittently for years. Pt denies any abdominal pain or blood in stool. Pt lives in [place] in the winter and was noted to return in November. GI panel pending. Covid neg. 5. Chronic back pain. Will hold pt's home med Venlafaxine at this time as it may cause hyponatremia/SIADH although not the main cause of pt's hyponatremia 6. Peptic ulcer disease. Hx of peptic ulcer disease. Cont home med omeprazole 7. HTN. Hold home med chlorthiadone and Olmesartan. Pt was started on Metoprolol 01/12/2020 AM due to tachycardia and HTN 8. Hypokalemia, resolved. S/p repletion. F/u with BMP Q4H 9. Metabolic encephalopathy 2/2 hyponatremia upon admission, improving. Cont neuro checks, fall precaution, and seizure precaution DVT prophylaxis: heparin SC GI prophylaxis: Pt has PUD on omeprazole at home Plan/VTE VTE Prophylaxis Ordered?: Yes Plan IVF: Decrease Diet: Continue Current Activity: Continue Current Diagnostics: Check Labs, Repeat Labs in AM Anticipated Discharge: Home, Home With Services VS, I&O, 24H, Win Vital Signs/I&O Vital Signs Date Time Temp Pulse Resp B/P (MAP) Pulse Ox O2 Delivery O2 Flow Rate FiO2 01/12/20 04:00 98.1 101 18 130/56 (80) 96 Room Air I&O- Last 24 Hours up to 6 AM 01/12/20 06:00 Intake Total 520 ml Output Total 450 ml Balance 70 ml Laboratory Data 24H LABS Laboratory Tests 2 01/11/20 11:37: Immature Granulocyte % (Auto) 0.4, Neutrophils (%) (Auto) 85.5H, Lymphocytes (%) (Auto) 5.2L, Monocytes (%) (Auto) 8.8H, Eosinophils (%) (Auto) 0.0, Basophils (%) (Auto) 0.1, Neutrophils # (Auto) 9.0H, Lymphocytes # (Auto) 0.6L, Monocytes # (Auto) 0.9H, Eosinophils # (Auto) 0.0, Basophils # (Auto) 0.0, Nucleated Red Blood Cells % (auto) 0.0, Prothrombin Time 11.7L, Prothromb Time International Ratio 0.89, Activated Partial Thromboplast Time 29.8, Anion Gap 11, Glomerular Filtration Rate 43.1, Calcium Level 9.2, Total Bilirubin 0.3, Direct Bilirubin 0.1, Aspartate Amino Transf (AST/SGOT) 264H, Alanine Aminotransferase (ALT/SGPT) 74, Alkaline Phosphatase 120H, Total Creatine Kinase 8709H, Creatine Kinase MB 89.7H, Creatine Kinase MB Relative Index 1.02, Troponin I 0.10, Total Protein 7.6, Albumin 3.5, Albumin/Globulin Ratio 0.9L, Lipase 26L, Thyroid Stimulating Hormone (TSH) 0.792, Free Thyroxine 1.04 01/11/20 15:00: Urine Random Osmolality 407L, Urine Random Creatinine 32.8, Urine Random Sodium 56 01/11/20 18:04: Anion Gap 12, Glomerular Filtration Rate 57.5, Calcium Level 8.4L, Total Bilirubin 0.4, Direct Bilirubin 0.2, Aspartate Amino Transf (AST/SGOT) 226H, Alanine Aminotransferase (ALT/SGPT) 74, Alkaline Phosphatase 114, Total Creatine Kinase 6745H, Creatine Kinase MB 65.0H, Creatine Kinase MB Relative Index 0.96, Troponin I 0.10, Total Protein 6.7, Albumin 3.3, Albumin/Globulin Ratio 1.0L, Thyroid Stimulating Hormone (TSH) 0.561, Free Thyroxine 1.07, Osmolality 257L, Cortisol AM Sample 50.4H 01/11/20 20:09: Anion Gap 11, Glomerular Filtration Rate 57.5, Calcium Level 8.8, Phosphorus Level 2.4L, Magnesium Level 1.9 01/11/20 21:50: Anion Gap 9, Glomerular Filtration Rate > 60.0, Calcium Level 9.0 01/12/20 00:01: Anion Gap 9, Glomerular Filtration Rate > 60.0, Calcium Level 8.9 01/12/20 01:57: Anion Gap 9, Glomerular Filtration Rate > 60.0, Calcium Level 8.4L 01/12/20 04:22: Anion Gap 10, Glomerular Filtration Rate > 60.0, Calcium Level 8.3L, Nucleated Red Blood Cells % (auto) 0.0 01/12/20 05:51: Anion Gap 13, Glomerular Filtration Rate > 60.0, Calcium Level 8.5L 01/12/20 08:01: CBC/BMP Laboratory Tests 01/11/20 11:37 01/11/20 18:04 01/11/20 20:09 01/11/20 21:50 01/12/20 00:01 01/12/20 01:57 01/12/20 04:22 01/12/20 05:51 Microbiology Microbiology 01/11/20 Respiratory Virus Panel (PCR) ([facility]) - Final, Complete GME ATTESTATION GME ATTESTATION My faculty preceptor for this patient encounter was physically present during the encounter and was fully available. All aspects of the patient interview, examination, medical decision making process, and medical care plan development were reviewed and approved by the faculty preceptor. The faculty preceptor is aware and concurs with the plan as stated in the body of this note and will attest to such by his/her cosignature. ATTENDING NOTE Pt seen and examined by me. Agree with the above assessment and plan. ARVIND SHEN DO Jan 12, 2020 08:33 BREANN GERARD MD Jan 14, 2020 15:24
[2020-01-12 08:38] LABS: BLOOD UREA NITROGEN 19 MG/DL (7-18); CALCIUM LEVEL 8.4 MG/DL (8.8-10.2); CARBON DIOXIDE LEVEL 24 MEQ/L (21-32); CHLORIDE LEVEL 91 MEQ/L (98-107); CREATININE FOR GFR 0.86 MG/DL (0.55-1.30); GLOMERULAR FILTRATION RATE > 60.0 (>32); GLUCOSE, FASTING 106 MG/DL (70-100); POTASSIUM SERUM 3.9 MEQ/L (3.5-5.1); SODIUM LEVEL 124 MEQ/L (136-145)
[2020-01-12 10:47] LABS: CREATININE,RANDOM URINE 64.4 MG/DL
[2020-01-12] MEDS: METOPROLOL TART 25 MG TABLET PO SCH ×2 (11:22→20:22)
[2020-01-12 12:25] LABS: BLOOD UREA NITROGEN 22 MG/DL (7-18); CALCIUM LEVEL 9.2 MG/DL (8.8-10.2); CARBON DIOXIDE LEVEL 22 MEQ/L (21-32); CHLORIDE LEVEL 89 MEQ/L (98-107); CREATININE FOR GFR 0.91 MG/DL (0.55-1.30); GLOMERULAR FILTRATION RATE > 60.0 (>32); GLUCOSE, FASTING 162 MG/DL (70-100); POTASSIUM SERUM 4.2 MEQ/L (3.5-5.1); SODIUM LEVEL 122 MEQ/L (136-145)
[2020-01-12] MEDS ORDERED: TOLVAPTAN 15 MG TAB (SAMSCA) PO ONE (13:00)
[2020-01-12 15:24] LABS: CREATININE FOR GFR 0.99 MG/DL (0.55-1.30); GLOMERULAR FILTRATION RATE 57.5 (>32); POTASSIUM SERUM 4.1 MEQ/L (3.5-5.1)
[2020-01-12] MEDS: ACETAMINOPHEN TAB 650MG DOSE (2X325MG) PO PRN ×2 (16:01→22:01)
--- NOTE | 2020-01-12 16:02 | IPN ---
DATE: 01/12/2020 SUBJECTIVE: The patient was seen and examined at the bedside today morning in the intensive care unit (ICU). The patient is slightly more awake today as compared with yesterday, and she reports that she is feeling better. Her sodium levels were monitored all night every two hours, and her sodium is staying stable in low 120s. Latest sodium today morning at 8 o'clock is 124. She did not require any more hypertonic saline overnight. OBJECTIVE: Vital signs: Temperature is 97.4 degrees Fahrenheit, blood pressure 133/64, pulse is 104, respiratory rate of 16, saturating 99% on room air. Intake and output: Urine output recorded since overnight is 350 mL. Weight in the bed scale is 48.6. PHYSICAL EXAMINATION: GENERAL: The patient is awake, alert, oriented times two, lying in bed in no apparent distress. HEAD AND NECK: Extraocular muscles intact. Pupils equally round and reactive to light. Mucous membranes are moist. Neck is supple. There is no jugular venous distention (JVD). CARDIOVASCULAR: S1, S2, tachycardia. No edema of the bilateral lower extremities. RESPIRATORY: Chest is clear to auscultation bilaterally. Bilateral equal air entry. No rales or rhonchi. ABDOMEN: Soft, positive bowel sounds. Nontender. No organomegaly. GENITOURINARY: Bladder is not palpable. MUSCULOSKELETAL: No clubbing or cyanosis. Pulses are 2+. CENTRAL NERVOUS SYSTEM: No focal deficit. The patient is slightly lethargic. Otherwise she follows commands and moves all extremities. LABORATORY REVIEW: CBC showed WBC of 8.1, hemoglobin is 12, platelets of 357. Repeat random urine osmolality in the morning is 594. Creatinine is 64.4. Random sodium is 42. BMP done today morning showed sodium 124, potassium 3.9, chloride 91, bicarbonate 24, BUN 19, creatinine is 0.86. Calcium was 8.4. CURRENT INPATIENT MEDICATIONS: The patient's medications were all reviewed by myself. She has been started on iron tablet 325 mg by mouth daily. I have started the patient on metoprolol 25 mg by mouth twice a day. I have also given the patient a dose of tolvaptan 15 mg by mouth once one dose. ASSESSMENT AND PLAN: 1. Hyponatremia. The patient presented with severe symptomatic hyponatremia. 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 Repeat urine osmolality in the morning is again high. Thiazide diuretics and angiotensin receptor chapo have been stopped since admission. Sodium fluctuated all night below 125, which is optimal. The patient was given a dose of tolvaptan 15 mg. Continue the basic metabolic panel (BMP) monitoring every 4 hours now. My target sodium correction for the next 24 hours is around 6 mEq. No fluid restriction at this time, since the patient is being given tolvaptan. Once the patient's sodium gets better, I might switch her to oral salt tablets and loop diuretic. 2. Hypokalemia. It is resolved with the oral potassium. Potassium level is being monitored every 4 hours, and if needed further dosages will be given. 3. Hypertension. Blood pressures were elevated. She was started on beta chapo today morning because of tachycardia and elevated blood pressures. 4. Metabolic encephalopathy. It is secondary to hyponatremia on arrival. Sodium level is gradually improving. Her mental status is also getting better. Total critical care time spent in the management of this patient today morning in the intensive care unit (ICU) is 45 minutes.
[2020-01-12 17:39] LABS: BLOOD UREA NITROGEN 23 MG/DL (7-18); CARBON DIOXIDE LEVEL 24 MEQ/L (21-32); CHLORIDE LEVEL 90 MEQ/L (98-107); GLOMERULAR FILTRATION RATE > 60.0 (>32); GLUCOSE, FASTING 112 MG/DL (70-100); POTASSIUM SERUM 4.5 MEQ/L (3.5-5.1); SODIUM LEVEL 124 MEQ/L (136-145)
[2020-01-12 18:47] LABS: CALCIUM LEVEL 8.9 MG/DL (8.8-10.2); CREATININE FOR GFR 1.27 MG/DL (0.55-1.30); GLOMERULAR FILTRATION RATE 43.1 (>32); POTASSIUM SERUM 3.8 MEQ/L (3.5-5.1)
[2020-01-12] MEDS: SODIUM CHLORIDE 1 GM TAB PO SCH (20:21)
[2020-01-12] MEDS: FUROSEMIDE 20 MG TAB PO SCH (20:21)
[2020-01-12 20:27] LABS: CALCIUM LEVEL 8.4 MG/DL (8.8-10.2); CREATININE FOR GFR 1.1 MG/DL (0.55-1.30); GLOMERULAR FILTRATION RATE 50.9 (>32)
[2020-01-12 22:57] LABS: CREATININE FOR GFR 1.24 MG/DL (0.55-1.30); GLOMERULAR FILTRATION RATE 44.3 (>32); POTASSIUM SERUM 3.6 MEQ/L (3.5-5.1)
[2020-01-12] MEDS ORDERED: POTASSIUM CHLORIDE 10 MEQ SR TABLET PO ONE (23:15)
[2020-01-13 00:55] LABS: CREATININE FOR GFR 1.05 MG/DL (0.55-1.30); GLOMERULAR FILTRATION RATE 53.7 (>32); POTASSIUM SERUM 3.9 MEQ/L (3.5-5.1)
[2020-01-13 02:00] VITALS: BP 125/69
[2020-01-13 04:22] LABS: HEMATOCRIT 32.2 % (36.0-47.0); HEMOGLOBIN 11.5 g/dl (12.0-15.5); MEAN CORPUSCULAR HEMOGLOBIN 32.3 pg (27.0-33.0); MEAN CORPUSCULAR HGB CONC 35.7 g/dl (32.0-36.5); MEAN CORPUSCULAR VOLUME 90.4 fl (80.0-96.0); PLATELET COUNT, AUTOMATED 385 10^3/uL (150-450); RED BLOOD COUNT 3.56 10^6/uL (4.00-5.40); WHITE BLOOD COUNT 7.3 10^3/uL (4.0-10.0)
[2020-01-13 04:43] LABS: CALCIUM LEVEL 8.9 MG/DL (8.8-10.2); CREATININE FOR GFR 0.97 MG/DL (0.55-1.30); GLOMERULAR FILTRATION RATE 58.8 (>32); POTASSIUM SERUM 4.3 MEQ/L (3.5-5.1)
[2020-01-13] MEDS: ACETAMINOPHEN TAB 650MG DOSE (2X325MG) PO PRN ×3 (05:37→21:04)
[2020-01-13] MEDS: HEPARIN SOD (PORCINE) 5000UNITS/ML VIAL (J1644 PER 1000UNITS) SC SCH ×3 (05:37→21:05)
[2020-01-13 06:00] VITALS: BP 133/70
--- NOTE | 2020-01-13 07:52 | IPNPDOC ---
Subjective Date Seen The patient was seen on 01/13/20. Subjective Chief Complaint/HPI Pt is examined at bedside today. She reported that she feels good, denies any weakness, fatigue, lightheadedness, dizziness, fever, or chills. Denies any chest pain, palpitation, dyspnea, abdominal pain. General: Denies: Chills, Fatigue Constitutional: Denies: Chills, Fever, Weakness Pulmonary: Denies: Dyspnea Cardiovascular: Denies: Chest Pain, Palpitations Gastrointestinal: Denies: Nausea, Vomiting, Abdominal Pain Objective Physical Examination General Exam: Positive: Alert, No Acute Distress Eye Exam: Positive: Conjunctiva & lids normal; Negative: Sclera icteric ENT Exam: Positive: Atraumatic, Mucous membr. moist/pink Neck Exam: Positive: Supple Chest Exam: Positive: Clear to auscultation, Normal air movement; Negative: Rales, Rhonchi, Wheezing Heart Exam: Positive: Tachycardic, Normal S1, Normal S2; Negative: Murmurs Abdomen Exam: Positive: Normal bowel sounds, Soft; Negative: Tenderness Extremity Exam: Positive: Other (moving all 4 extremities); Negative: Cyanosis, Edema, Swelling Skin Exam: Positive: Nl turgor and temperature, Other skin issue (Ecchymosis about [id number] in right jaw) Neuro Exam: Positive: Normal Speech, Normal Tone, Sensation Intact Psych Exam: Positive: Mental status NL, Mood NL, Memory Intact, Oriented x 3; Negative: Anxiety Assessment /Plan Assessment Pt is a 79 yo female presented to [facility] d/t generalized weakness with fall found to have hyponatremia Na 114 received IV NS and 3%saline for hyponatremia followed by nephro with Na improving 1. 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 Na 114 upon admission with Na 128 on 01/07/2020 ER visit. Pt has been taking chlorthiladone and Olmesartan for a week; hold both medic ation. Nephro following. Receieved NS, 3% saline, NS, 1 dose tolvaptan 15 mg, currently on Na tab with lasix. Follow up BMP. Na 133 2. Fall from generalized weakness 2/[address], Abd/pelvis CT, right hip/pelvis X ray, and CXR showed no acute abnormality. reported pt hit her left elbow 01/10/2020 after fall from weakness, left complete elbow X ray showed no acute fracture. Fall precaution 2. Transaminitis likely 2/2 ischemic liver perfusion from hypovolemia 2/2 diuretic use. Pt on IV fluid now. Cont to monitor liver profile. Avoid Tylenol 3. Elevated CK-MB likely 2/2 muscle damage hyponatremia vs fall, unlikely d/t CAD/ACS. Pt denies any chest pain for the past week and cont to deny chest pain. Trop negX3 4. Diarrhea, reported to be chronic intermittent, likely IBS vs bacteria overgrowth. Pt's reported pt currently having watery diarrhea at least 3 BM a day, but reported she had this problem intermittently for years. Pt denies any abdominal pain or blood in stool. Pt lives in [place] in the winter and was noted to return in November. GI panel pending. Covid neg. 5. Chronic back pain. Will hold pt's home med Venlafaxine at this time as it may cause hyponatremia/SIADH 6. Peptic ulcer disease. Hx of peptic ulcer disease. Cont home med omeprazole 7. HTN. Hold home med chlorthiadone and Olmesartan. Pt was started on Metoprolol 01/12/2020 AM due to tachycardia and HTN 8. Hypokalemia, resolved. S/p repletion. F/u with BMP Q4H 9. Metabolic encephalopathy 2/2 hyponatremia upon admission, improving. Cont neuro checks, fall precaution, and seizure precaution DVT prophylaxis: heparin SC GI prophylaxis: Pt has PUD on omeprazole at home Plan/VTE VTE Prophylaxis Ordered?: Yes Plan Diet: Continue Current Activity: Continue Current Therapy: PT, OT Diagnostics: Check Labs, Repeat Labs in AM Anticipated Discharge: Home, Home With Services Disposition Pt likely medically clear on 01/14/2020 when hyponatremia is corrected by nephro. Placement pending; may need 24/ assistance VS, I&O, 24H, [place] Vital Signs/I&O Vital Signs Date Time Temp Pulse Resp B/P (MAP) Pulse Ox O2 Delivery O2 Flow Rate FiO2 01/13/20 06:00 98.2 108 20 133/70 (91) 97 Room Air I&O- Last 24 Hours up to 6 AM 01/13/20 06:00 Intake Total 680 ml Output Total 1910 ml Balance -1230 ml Laboratory Data 24H LABS Laboratory Tests 2 01/12/20 08:01: Anion Gap 9, Glomerular Filtration Rate > 60.0, Calcium Level 8.4L 01/12/20 10:09: Urine Random Osmolality 594, Urine Random Creatinine 64.4, Urine Random Sodium 42 01/12/20 11:46: Anion Gap 11, Glomerular Filtration Rate > 60.0, Calcium Level 9.2 01/12/20 14:49: Anion Gap 7L, Glomerular Filtration Rate 57.5, Calcium Level 9.0 01/12/20 17:01: Anion Gap 10, Glomerular Filtration Rate > 60.0, Calcium Level 9.0 01/12/20 18:09: Anion Gap 9, Glomerular Filtration Rate 43.1, Calcium Level 8.9 01/12/20 19:55: Anion Gap 9, Glomerular Filtration Rate 50.9, Calcium Level 8.4L 01/12/20 22:18: Anion Gap 9, Glomerular Filtration Rate 44.3, Calcium Level 9.0 01/13/20 00:21: Anion Gap 7L, Glomerular Filtration Rate 53.7, Calcium Level 9.0 01/13/20 04:11: Anion Gap 9, Glomerular Filtration Rate 58.8, Calcium Level 8.9, Nucleated Red Blood Cells % (auto) 0.0 CBC/BMP Laboratory Tests 01/12/20 08:01 01/12/20 11:46 01/12/20 14:49 01/12/20 17:01 01/12/20 18:09 01/12/20 19:55 01/12/20 22:18 01/13/20 00:21 01/13/20 04:11 Microbiology Microbiology 01/11/20 Respiratory Virus Panel (PCR) ([facility]) - Final, Complete GME ATTESTATION GME ATTESTATION My faculty preceptor for this patient encounter was physically present during the encounter and was fully available. All aspects of the patient interview, examination, medical decision making process, and medical care plan development were reviewed and approved by the faculty preceptor. The faculty preceptor is aware and concurs with the plan as stated in the body of this note and will attest to such by his/her cosignature. ATTENDING NOTE Pt seen and examined by me. Agree with the above assessment and plan. ARVIND SHEN DO Jan 13, 2020 07:38 BREANN GERARD MD Jan 14, 2020 15:25
[2020-01-13 08:32] LABS: CREATININE FOR GFR 1.05 MG/DL (0.55-1.30); GLOMERULAR FILTRATION RATE 53.7 (>32); POTASSIUM SERUM 4.5 MEQ/L (3.5-5.1)
[2020-01-13 08:49] LABS: BILIRUBIN,DIRECT 0.2 MG/DL (0.0-0.2); BILIRUBIN,TOTAL 0.4 MG/DL (0.2-1.0); TOTAL PROTEIN 6.6 GM/DL (6.4-8.2)
[2020-01-13] MEDS: OMEPRAZOLE 20 MG CAP PO SCH (09:25)
[2020-01-13] MEDS: FERROUS SULFATE 325MG TAB PO SCH (09:25)
[2020-01-13] MEDS: DOCUSATE SODIUM 100 MG CAP PO SCH ×2 (09:25→21:05)
[2020-01-13] MEDS: SODIUM CHLORIDE 1 GM TAB PO SCH ×2 (09:25→21:05)
[2020-01-13] MEDS: FUROSEMIDE 20 MG TAB PO SCH ×2 (09:25→16:20)
[2020-01-13] MEDS: METOPROLOL TART 25 MG TABLET PO SCH ×2 (09:28→21:09)
[2020-01-13 14:00] VITALS: BP 123/72
[2020-01-13 15:48] LABS: ALBUMIN 3.1 GM/DL (3.2-5.2); CALCIUM LEVEL 8.7 MG/DL (8.8-10.2); CREATININE FOR GFR 1.25 MG/DL (0.55-1.30); GLOMERULAR FILTRATION RATE 43.9 (>32); PHOSPHORUS LEVEL 1.5 MG/DL (2.5-4.9)
--- NOTE | 2020-01-13 15:48 | IPN ---
DATE OF SERVICE: 01/13/2020 SUBJECTIVE: The patient was seen and examined at the bedside today morning. Last 24-hour events were noted. The patient was downgraded from the intensive care unit (ICU) yesterday. She is much more awake and alert today. Basic metabolic panel (BMP) was monitored yesterday and I was called for each BMP result. Her sodium has nicely improved to 133 today morning. She walked out of her bed into the sofa close to the window. She is much more awake and alert and feeling much better today morning. OBJECTIVE: Vital Signs: Temperature is 98.2 degrees Fahrenheit, blood pressure 112/68, pulse is 118, respiratory of 20, saturating 97% on room air. Intake/Output: Urine output recorded is 1.1 liters yesterday, 1.5 liters so far today since overnight. Weight in the bed scale is 45.3 kg. PHYSICAL EXAMINATION: General: The patient is awake, alert, oriented times three, sitting up in sofa now. No apparent distress. Head/Neck Exam: Extraocular muscles intact. Pupils equally round and reactive to light. Mucous membranes are moist. Neck is supple. There is no jugular venous distention (JVD). Cardiovascular: S1, S2, regular rate. No edema of the bilateral lower extremities. Respiratory: Chest is clear to auscultation bilaterally. Bilateral equal air entry. No rales or rhonchi. Abdomen: Soft. Positive bowel sounds. Nontender. No organomegaly. Musculoskeletal: No clubbing or cyanosis. Pulses are 2+. Central Nervous System ([employer]ENT): No focal deficit. Power is 5/5 in all extremities. LAB REVIEW: Complete blood count (CBC) showed WBC 7.3, hemoglobin 11.5, platelets of 385. BMP showed sodium 133, potassium 4.5, chloride 97, bicarbonate 27, BUN 22, creatinine is 1.05, albumin is 3. CURRENT INPATIENT MEDICATIONS: The patient's medications were all reviewed by myself. She was given a dose of tolvaptan yesterday. No more tolvaptan has been given today. She was started on sodium chloride 1 gram by mouth three times a day and Lasix 20 mg by mouth twice a day. She was also given an extra dose of potassium chloride 40 mEq last night. ASSESSMENT AND PLAN: 1. Hyponatremia. The patient is being treated as syndrome of inappropriate secretion of antidiuretic hormone (SIADH) possibly induced by thiazide diuretics. She is currently on Lasix and salt tablets. Continue current dose of Lasix 20 mg by mouth twice a day along with sodium chloride 1 gram by mouth twice a day. A repeat BMP will be done in the afternoon. I believe her sodium level should improve more than 135 by tomorrow morning. 2. Hypokalemia. It has resolved now. The patient was given one dose of potassium chloride last night. 3. Hypertension. Blood pressure is controlled with beta-chapo. Dose will be adjusted by tomorrow morning if needed. 4. Metabolic encephalopathy. It is significantly improved after improvement of hyponatremia. 5. Iron-deficiency anemia. The patient is on oral iron. Frequency of the lab draws has been decreased now. DISPOSITION: I am hopeful that we should be able to send the patient home in the next 24 hours.
[2020-01-13] MEDS ORDERED: NORCO, ANEXSIA 5/325MG TABLET (HYDROcodone/ACETAMINOPHEN) PO ONE (16:30)
[2020-01-13] MEDS ORDERED: IBUPROFEN 400 MG TAB PO ONE (16:30)
[2020-01-13 16:40] LABS: HEPATITIS A ANTIBODY IGM NEGATIVE (NEGATIVE); HEPATITIS B CORE ANTIBODY IGM NEGATIVE (NEGATIVE); HEPATITIS B SURFACE ANTIGEN NEGATIVE (NEGATIVE); HEPATITIS C VIRUS ABY INDEX 0.2 INDEX (<0.8)
[2020-01-13] MEDS: RAMELTEON 8 MG TAB (ROZEREM) PO SCH (21:00)
[2020-01-13 22:00] VITALS: BP 121/71
[2020-01-14] MEDS: HEPARIN SOD (PORCINE) 5000UNITS/ML VIAL (J1644 PER 1000UNITS) SC SCH ×3 (05:15→21:02)
[2020-01-14 05:45] LABS: HEMATOCRIT 32.1 % (36.0-47.0); HEMOGLOBIN 11.2 g/dl (12.0-15.5); MEAN CORPUSCULAR HEMOGLOBIN 32.6 pg (27.0-33.0); MEAN CORPUSCULAR HGB CONC 34.9 g/dl (32.0-36.5); MEAN CORPUSCULAR VOLUME 93.3 fl (80.0-96.0); PLATELET COUNT, AUTOMATED 467 10^3/uL (150-450); RED BLOOD COUNT 3.44 10^6/uL (4.00-5.40); WHITE BLOOD COUNT 9.8 10^3/uL (4.0-10.0)
[2020-01-14 06:00] VITALS: BP 131/81
[2020-01-14 07:37] LABS: ALBUMIN 3.2 GM/DL (3.2-5.2); BILIRUBIN,TOTAL 0.4 MG/DL (0.2-1.0); CALCIUM LEVEL 8.9 MG/DL (8.8-10.2); CREATININE FOR GFR 1.05 MG/DL (0.55-1.30); GLOMERULAR FILTRATION RATE 53.7 (>32); POTASSIUM SERUM 4.5 MEQ/L (3.5-5.1); TOTAL PROTEIN 6.9 GM/DL (6.4-8.2)
[2020-01-14] MEDS ORDERED: K-PHOS NEUTRAL 250MG TABLET (SOD.PHOSPHATE/POT.PHOSPHATE) PO SCH (09:00)
[2020-01-14 10:00] VITALS: BP 140/86
[2020-01-14] MEDS: FERROUS SULFATE 325MG TAB PO SCH (11:10)
[2020-01-14] MEDS: DOCUSATE SODIUM 100 MG CAP PO SCH ×2 (11:10→21:01)
[2020-01-14] MEDS: SODIUM CHLORIDE 1 GM TAB PO SCH ×2 (11:11→20:59)
[2020-01-14] MEDS: FUROSEMIDE 20 MG TAB PO SCH ×2 (11:11→17:42)
[2020-01-14] MEDS: METOPROLOL TART 25 MG TABLET PO SCH ×2 (11:11→21:01)
[2020-01-14] MEDS: OMEPRAZOLE 20 MG CAP PO SCH (11:13)
--- NOTE | 2020-01-14 12:09 | IPNPDOC ---
Subjective Date Seen The patient was seen on 01/14/20. Subjective Chief Complaint/HPI Patient is examined at bedside. She reported she is feeling good. She is A&OX3 and is able to answer most questions. Denied any complaints. She denies any fever, chills, nausea, vomiting, chest pain, palpitation, dyspnea. It was noted that pt is determined not safe to go home yet at this time however is resistant to go home. Nurse reported no seizure events overnight General: Denies: Chills, Malaise Constitutional: Denies: Chills, Fever Pulmonary: Denies: Dyspnea, Cough, Pleuritic Chest Pain Cardiovascular: Denies: Chest Pain, Palpitations Gastrointestinal: Denies: Nausea, Vomiting, Abdominal Pain, Diarrhea Genitourinary: Denies: Retention Neurological: Denies: Confusion, Seizures Objective Physical Examination General Exam: Positive: Alert, No Acute Distress Eye Exam: Positive: Conjunctiva & lids normal; Negative: Sclera icteric ENT Exam: Positive: Atraumatic, Mucous membr. moist/pink Neck Exam: Positive: Supple Chest Exam: Positive: Clear to auscultation, Normal air movement; Negative: Rales, Rhonchi, Wheezing Heart Exam: Positive: Tachycardic, Regular Rhythm, Normal S1, Normal S2; Negative: Murmurs Abdomen Exam: Positive: Normal bowel sounds, Soft; Negative: Tenderness Extremity Exam: Positive: Other (+4/5 in all 4 extremities); Negative: Cyanosis, Edema, Swelling Skin Exam: Positive: Nl turgor and temperature, Other skin issue (Ecchymosis about [id number] in right jaw) Neuro Exam: Positive: Normal Speech, Normal Tone, Sensation Intact, Cranial Nerves 3-12 NL Psych Exam: Positive: Mental status NL, Mood NL, Memory Intact, Oriented x 3; Negative: Anxiety Assessment /Plan Assessment Pt is a 79 yo female presented to [facility] d/t generalized weakness with fall found to have hyponatremia Na 114 received IV NS and 3%saline for hyponatremia followed by nephro with Na improving 1. 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 Na 114 upon admission with Na 128 on 01/07/2020 ER visit. Pt has been taking chlorthiladone and Olmesartan for a week; hold both medication. Received NS, 3% saline, NS, 1 dose tolvaptan 15 mg, currently on Na tab with lasix. Na 133. Follow up BMP. 2. Fall from generalized weakness 2/[address], Abd/pelvis CT, right hip/pelvis X ray, and CXR showed no acute abnormality. reported pt hit her left elbow 01/10/2020 after fall from weakness, left complete elbow X ray showed no acute fracture. Fall precaution 2. Transaminitis likely 2/2 ischemic liver perfusion from hypovolemia 2/2 diuretic use, improved and stabilized. Cont to monitor liver profile. 3. Elevated CK-MB likely 2/2 muscle damage hyponatremia vs fall, unlikely d/t CAD/ACS. Pt denies any chest pain for the past week and cont to deny chest pain. Trop negX3 5. Chronic back pain. Will hold pt's home med Venlafaxine at this time as it may cause hyponatremia/SIADH 6. Peptic ulcer disease. Hx of peptic ulcer disease. Cont home med omeprazole 7. HTN. Hold home med chlorthiadone and Olmesartan. Pt was started on Metoprolol 01/12/2020 AM due to tachycardia and HTN 8. Hypokalemia, resolved. S/p repletion. F/u with BMP 9. Metabolic encephalopathy 2/2 hyponatremia upon admission, resolved. Fall precaution, and seizure precaution 10. Hypophosphotemia. Phos level of 1.5 yesterday evening. Discussed with nephro and will start pt on neutrophos 1 tab TID for 2 days. Recheck Phos level. Pt's repeat phos was 2.0 this morning. D/C neutrophos after receiving one dose, f/u phos DVT prophylaxis: heparin SC GI prophylaxis: Pt has PUD on omeprazole at home Pt has not cleared PT/OT for home placement. is resistant for placement except for d/c home. Pending PT/OT re-eval vs discussion with Plan/VTE VTE Prophylaxis Ordered?: Yes Plan Diet: Continue Current Activity: Continue Current Therapy: PT, OT Diagnostics: Check Labs, Repeat Labs in AM Anticipated Discharge: Home, Home With Services VS, I&O, 24H, Fishbone Vital Signs/I&O Vital Signs Date Time Temp Pulse Resp B/P (MAP) Pulse Ox O2 Delivery O2 Flow Rate FiO2 01/14/20 11:11 103 140/86 01/14/20 10:00 99.5 16 96 Room Air I&O- Last 24 Hours up to 6 AM 01/14/20 06:00 Intake Total 920 ml Output Total 650 ml Balance 270 ml Laboratory Data 24H LABS Laboratory Tests 2 01/13/20 14:55: Anion Gap 8, Glomerular Filtration Rate 43.9, Calcium Level 8.7L, Phosphorus Level 1.5#L, Albumin 3.1L 01/14/20 05:27: Anion Gap 8, Glomerular Filtration Rate 53.7, Calcium Level 8.9, Phosphorus Level 2.0#L, Albumin 3.2, Nucleated Red Blood Cells % (auto) 0.0, Total Bilirubin 0.4, Aspartate Amino Transf (AST/SGOT) 123H, Alanine Aminotransferase (ALT/SGPT) 74, Alkaline Phosphatase 108, Total Protein 6.9, Albumin/Globulin Ratio 0.9L CBC/BMP Laboratory Tests 01/13/20 14:55 01/14/20 05:27 Microbiology Microbiology 01/11/20 Respiratory Virus Panel (PCR) ([facility]) - Final, Complete GME ATTESTATION GME ATTESTATION My faculty preceptor for this patient encounter was physically present during the encounter and was fully available. All aspects of the patient interview, examination, medical decision making process, and medical care plan development were reviewed and approved by the faculty preceptor. The faculty preceptor is aware and concurs with the plan as stated in the body of this note and will a ttest to such by his/her cosignature. ATTENDING NOTE Pt seen and examined by me. Agree with the above assessment and plan. ARVIND SHEN DO Jan 14, 2020 12:09 BREANN GERARD MD Jan 14, 2020 15:26
[2020-01-14 14:00] VITALS: BP 133/61
[2020-01-14] MEDS: RAMELTEON 8 MG TAB (ROZEREM) PO SCH (20:59)
[2020-01-14 22:00] VITALS: BP 135/61
[2020-01-15] MEDS: HEPARIN SOD (PORCINE) 5000UNITS/ML VIAL (J1644 PER 1000UNITS) SC SCH ×3 (05:19→20:27)
[2020-01-15 05:45] LABS: HEMATOCRIT 30.5 % (36.0-47.0); HEMOGLOBIN 10.4 g/dl (12.0-15.5); MEAN CORPUSCULAR HEMOGLOBIN 32.2 pg (27.0-33.0); MEAN CORPUSCULAR HGB CONC 34.1 g/dl (32.0-36.5); MEAN CORPUSCULAR VOLUME 94.4 fl (80.0-96.0); PLATELET COUNT, AUTOMATED 474 10^3/uL (150-450); RED BLOOD COUNT 3.23 10^6/uL (4.00-5.40)
[2020-01-15 06:00] VITALS: BP 117/56
[2020-01-15 06:21] LABS: BLOOD UREA NITROGEN 29 MG/DL (7-18); CALCIUM LEVEL 8.8 MG/DL (8.8-10.2); CARBON DIOXIDE LEVEL 30 MEQ/L (21-32); CHLORIDE LEVEL 100 MEQ/L (98-107); CREATININE FOR GFR 0.84 MG/DL (0.55-1.30); GLOMERULAR FILTRATION RATE > 60.0 (>32); GLUCOSE, FASTING 86 MG/DL (70-100); PHOSPHORUS LEVEL 3.5 MG/DL (2.5-4.9); POTASSIUM SERUM 4.8 MEQ/L (3.5-5.1); SODIUM LEVEL 137 MEQ/L (136-145)
--- NOTE | 2020-01-15 06:55 | IPN ---
DATE OF SERVICE: 01/14/2020 SUBJECTIVE: The patient was seen and examined at the bedside today morning. She is afebrile, hemodynamically stable. Her sodium level is stable at 133. She is awake and alert. Her blood pressures are well controlled. The patient is waiting for to come and see her. She denies any active complaints apart from slight low back pain after a recent fall that she had when she had low sodium levels. OBJECTIVE: Vital Signs: Temperature is 99.5 degrees Fahrenheit, blood pressure 140/86, pulse is 103, respiratory rate of 16, saturating 96% on room air. Intake and output: Urine output recorded at 1.8 liters yesterday, 250 mL so far today since overnight. Weight in the bed scale is 45.3 kg. PHYSICAL EXAMINATION: General: The patient is awake, alert, oriented times three, sitting up in the bed, in no apparent distress. Head and Neck Exam: Extraocular muscles intact. Pupils equally round and reactive to light. Mucous membranes are moist. Neck is supple. There is no jugular venous distention (JVD). Cardiovascular: S1, S2. Tachycardia, irregular rate. No edema of the bilateral lower extremities. Respiratory: Chest is clear to auscultation bilaterally. Bilateral equal air entry. No rales or rhonchi. Abdomen: Soft. Positive bowel sounds. Nontender. No organomegaly. Musculoskeletal: No clubbing or cyanosis. Pulses are 2+. DIRECTOR OF MATERIALS: No focal deficit. Power is 5/5 in all extremities. LAB REVIEW: CBC showed WBC of 9.8, hemoglobin 11.2, platelets of 467. BMP showed sodium 133, potassium 4.5, chloride 97, bicarb 28, BUN 28, creatinine 1.05, calcium 8.9, phosphorus is 2, albumin is 3.2. CURRENT INPATIENT MEDICATIONS: The patient's medications were all reviewed by myself. She has been started on K-Phos 250 mg by mouth three times a day for a total of six doses. She continues to be on sodium chloride 1 gram by mouth twice a day and furosemide 20 mg by mouth twice a day. No other significant change in the medications today as compared with yesterday. ASSESSMENT/PLAN: 1. Hyponatremia. 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 She is on Lasix and salt tablet. Sodium is stable at 133. Avoid further use of thiazide diuretics, GAURANG or ARB. 2. Hypertension. Blood pressure is controlled with diuretic and metoprolol only. No further medication adjustment needed. 3. Metabolic encephalopathy. Significantly improved after hyponatremia improvement. 4. Iron-deficiency anemia. Continue current dose of oral iron. Hemoglobin level is stable. 5. Disposition. The patient is optimized from nephrology standpoint. She is cleared from physical therapy. She can go home. She needs to follow up with nephrology within 1 week after discharge from the hospital. Nephrology service is going to sign off at this moment. Please call nephrology service for any help in the management of this patient during this hospitalization.
[2020-01-15] MEDS: METOPROLOL TART 25 MG TABLET PO SCH ×2 (09:00→20:28)
[2020-01-15] MEDS: DOCUSATE SODIUM 100 MG CAP PO SCH ×2 (10:23→20:28)
[2020-01-15] MEDS: FUROSEMIDE 20 MG TAB PO SCH ×2 (10:23→17:11)
[2020-01-15] MEDS: OMEPRAZOLE 20 MG CAP PO SCH (10:23)
[2020-01-15] MEDS: SODIUM CHLORIDE 1 GM TAB PO SCH ×2 (10:24→20:27)
[2020-01-15] MEDS: FERROUS SULFATE 325MG TAB PO SCH (10:24)
[2020-01-15 14:00] VITALS: BP 102/53
--- NOTE | 2020-01-15 20:08 | IPNPDOC ---
Date Seen The patient was seen on 01/15/20. Progress Note SUBJECTIVE: Patient complains of back pain with movement but otherwise states that she is comfortable. Na is 137 today. Afebrile overnight. OBJECTIVE PHYSICAL EXAMINATION: VITAL SIGNS: Please see below. General: No acute distress, Alert Eyes: Normal sclera, EOMI HENT: Atraumatic Cardiovascular: Normal rate Pulmonary: Clear to auscultation b/l, no wheezing GI: Soft, nontender, nondistended Skin: Warm and dry Neuro: CN grossly intact. No focal deficits. LABORATORY DATA, IMAGING STUDIES, MICROBIOLOGY: Please see below. DVT prophylaxis ordered?: HSQ ASSESSMENT AND PLAN: 1. Hyponatremia - resolved. Na 114 on admission. - s/p 3% hypertonic saline, tolvaptan and lasix. - Nephrology was following up until resolution. - Avoid use of thiazide diuretic, ACEI or ARBs. 2. Generalized weakness and fall - f/u PT and OT eval/reval to asseess for home vs. placement. - hyponatremia had resolved. - imaging including CT head, XR of hip/pelvis does not show acute fractures. 3. transaminitis - likely from hypovolemia. - monitor LFTS. 4. HTN - Started on metoprolol on this admission due to tachycardia and HTN. - HR now stable. Maintain on BB and diuretic only at this time. 5. metabolic encephalopathy - hyponatremia. resolved. DISPOSITION: Pending PT clearance for home, does not want placement. VS, I&O, 24H, Fishbone Vital Signs/I&O Vital Signs Date Time Temp Pulse Resp B/P (MAP) Pulse Ox O2 Delivery O2 Flow Rate FiO2 01/15/20 14:00 97.9 78 16 102/53 (69) 97 Room Air I&O- Last 24 Hours up to 6 AM 01/15/20 06:00 Intake Total 660 ml Output Total 725 ml Balance -65 ml Laboratory Data 24H LABS Laboratory Tests 2 01/15/20 05:25: Nucleated Red Blood Cells % (auto) 0.0, Anion Gap 7L, Glomerular Filtration Rate > 60.0, Calcium Level 8.8, Phosphorus Level 3.5# CBC/BMP Laboratory Tests 01/15/20 05:25 Microbiology Microbiology 01/11/20 Respiratory Virus Panel (PCR) ([facility]) - Final, Complete DARIO DENTON MD Jan 15, 2020 20:08
[2020-01-15] MEDS: RAMELTEON 8 MG TAB (ROZEREM) PO SCH (20:27)
[2020-01-15] MEDS: ACETAMINOPHEN TAB 650MG DOSE (2X325MG) PO PRN (20:28)
[2020-01-15 22:00] VITALS: BP 96/50
[2020-01-16] MEDS: HEPARIN SOD (PORCINE) 5000UNITS/ML VIAL (J1644 PER 1000UNITS) SC SCH ×2 (05:23→14:38)
[2020-01-16 06:00] VITALS: BP 121/66
[2020-01-16 07:30] LABS: BLOOD UREA NITROGEN 28 MG/DL (7-18); CALCIUM LEVEL 9.3 MG/DL (8.8-10.2); CARBON DIOXIDE LEVEL 29 MEQ/L (21-32); CHLORIDE LEVEL 98 MEQ/L (98-107); GLOMERULAR FILTRATION RATE > 60.0 (>32); GLUCOSE, FASTING 89 MG/DL (70-100); PHOSPHORUS LEVEL 3.2 MG/DL (2.5-4.9); POTASSIUM SERUM 4.3 MEQ/L (3.5-5.1); SODIUM LEVEL 132 MEQ/L (136-145)
[2020-01-16] MEDS: SODIUM CHLORIDE 1 GM TAB PO SCH (08:49)
[2020-01-16 08:50] VITALS: BP 124/68
[2020-01-16] MEDS: FUROSEMIDE 20 MG TAB PO SCH (08:50)
[2020-01-16] MEDS: OMEPRAZOLE 20 MG CAP PO SCH (08:50)
[2020-01-16] MEDS: DOCUSATE SODIUM 100 MG CAP PO SCH (08:50)
[2020-01-16] MEDS: FERROUS SULFATE 325MG TAB PO SCH (08:50)
[2020-01-16] MEDS: METOPROLOL TART 25 MG TABLET PO SCH (08:50)
[2020-01-16] MEDS: ACETAMINOPHEN TAB 650MG DOSE (2X325MG) PO PRN (08:56)
[2020-01-16 14:00] VITALS: BP 109/51
[2020-01-16] MEDS ORDERED: METO1TAB87 PO (14:49)
[2020-01-16] MEDS ORDERED: SODI1TAB6 PO (14:54)
[2020-01-16] MEDS ORDERED: FURO20TA2 PO (14:54)
--- NOTE | 2020-01-16 17:10 | DS.PDOC ---
Discharge Summary General Date of Admission Jan 11, 2020 at 16:57 Date of Discharge 01/16/20 Discharge Summary PROCEDURES PERFORMED DURING STAY: [None]. ADMITTING DIAGNOSES: 1. Hypo-osmotic, hypovolemic severe hyponatremia 2/2 diuretic use, symptomatic 2. Fall from generalized weakness 2/2 hyponatremia 2. Transaminitis likely 2/2 ischemic liver perfusion from hypovolemia 2/2 diuretic use 3. Elevated CK-MB likely 2/2 muscle damage hyponatremia vs fall, unlikely d/t CAD/ACS 4. Diarrhea, reported to be chronic intermittent, likely IBS vs bacteria overgrowth 5. Chronic back pain 6. Peptic ulcer disease 7. HTN DISCHARGE DIAGNOSES: 1. 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 Fall from generalized weakness 2/2 hyponatremia 2. Transaminitis likely 2/2 ischemic liver perfusion from hypovolemia 2/2 diuretic use, improved and stabilized 3. Elevated CK-MB likely 2/2 muscle damage hyponatremia vs fall, unlikely d/t CAD/ACS 5. Chronic back pain 6. Peptic ulcer disease 7. HTN 8. Hypokalemia, resolved 9. Metabolic encephalopathy 2/2 hyponatremia upon admission, resolved 10. Hypophosphotemia, resolved COMPLICATIONS/CHIEF COMPLAINT: Electrolyte Abnormality,Hyponatremia. HISTORY OF PRESENT ILLNESS: Pt is a 79 yo female with PMH of HTN presented to [facility] due to generalized weakness that has been worsening for the past week. was at bedside and part of hx was obtained from pt's as she is very hard of hearing, and it was noted that at baseline pt has some memory problem. She had 3 falls in total in the past week with 2 falls 2 days prior to admission, with one she fell backwards while sitting on bathtub and later at night she slide off the bed; pt is unable to recall if she hit any part of the body during these 2 falls. Pt fell again last night face down and hit right sided jaw, face, and left elbow. Pt reported that at the time of the fall she felt lightheadedness and dizziness without vertigo. reported that pt' has Chlorthalidone added 1 week ago in replacement of a medication that he could not recall. Per clinic record she had chlorthalidone 25mg sent 01/03/2020. Frequent urination every 1H reported by pt. She denies any pain in the body at this time, and both and pt reported pt did not hit her head. Pt denies any chest pain, palpitation, dyspnea, numbness, tingling, loss of sensation, abdominal pain, constipation, dysuria, or blood in stool. It was noted that she had an episode of emesis 01/06/2020 and she had been reporting no nausea since then. reported that pt has been having frequent diarrhea currently which she has had intermittently for years. HOSPITAL COURSE: Nephro was consulted by the ER. Pt was started on IV NS, then IV 3% saline, received 1 dose tolvaptan 15 mg, then transitioned to lasix with Na tablet. Patient's Na level gradually increase within desired range, and she gradually became more alert. Pt reported hitting left elbow upon during fall reported upon admission, and a left elbow x ray was ordered which showed no fracture. Pt has some hypophosphotemia and hypokalemia and resolved after repletion. Pt is medically cleared 01/14/2020 and there was a question whether patient can be discharged home vs rehab On 01/16/2020, it was noted that pt's would like to take patient home. Pt was determined stable to be discharge home with home health. Discussed with nephrology 01/16/2020, Pt's Na upon discharge was 132, and pt will cont Na tablet, Lasix, and 1.5L fluid restriction with nephro follow up in 1-2 weeks. DISCHARGE MEDICATIONS: Please see below. ALLERGIES: Please see below. PHYSICAL EXAMINATION ON DISCHARGE: VITAL SIGNS: Please see below. GGeneral Exam: alert, No Acute Distress Eye Exam: conjunctiva & lids normal. Sclera icteric ENT Exam: atraumatic, Mucous membr. moist/pink Neck Exam: supple Chest Exam: clear to auscultation, Normal air movement; Rales, Rhonchi, Wheezing Heart Exam: tachycardic, Regular Rhythm, Normal S1, Normal S2; No murmurs Abdomen Exam: normal bowel sounds, Soft; No tenderness Extremity Exam: +4/5 in all 4 extremities. No cyanosis, edema,or swelling Skin Exam: normal skin turgor and temperature, ecchymosis about [id number] in right jaw improving Neuro Exam: normal Speech, normal tone, sensation Intact, cranial Nerves 3-12 wnl Psych Exam: mental status wnl, Mood wnl, memory intact, oriented x 3; no anxiety LABORATORY DATA: Please see below. 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 CT cervical spine showed no acute posttraumatic abnormalities of the cervical spine CXR showed no active cardiopulmonary disease Right hip to include pelvis showed no evidence of an acute fracture, dislocation or subluxation Abd/pelvis CT showed no acute abnormality Left elbow X ray showed no fracture PROGNOSIS: [Fair] ACTIVITY: [As tolerated]. DIET: [As tolerated] DISPOSITION: 01 Home, Home health DISCHARGE INSTRUCTIONS: 1. Please follow up with PCP in 7 days and nephrology 1-2 week 2. Please take medication as prescribed 3. Discharge home with home health ITEMS TO FOLLOWUP ON ON OUTPATIENT: 1. [Sodium level]. DISCHARGE CONDITION: [Improved]. TIME SPENT ON DISCHARGE: [37] minutes. I have personally evaluated and examined the patient. Discussed with resident/student regarding plan of care and agree with the above assessment and plan. Vital Signs/I&Os Vital Signs Date Time Temp Pulse Resp B/P (MAP) Pulse Ox O2 Delivery O2 Flow Rate FiO2 01/16/20 14:00 98.3 55 16 109/51 (70) 98 Room Air I&O- Last 24 Hours up to 6 AM 01/16/20 06:00 Intake Total 1320 ml Output Total 2700 ml Balance -1380 ml Laboratory Data Labs 24H Laboratory Tests 2 01/16/20 06:10: Anion Gap 5L, Glomerular Filtration Rate > 60.0, Calcium Level 9.3, Phosphorus Level 3.2 CBC/BMP Laboratory Tests 01/16/20 06:10 Microbiology Microbiology 01/11/20 Respiratory Virus Panel (PCR) ([facility]INA) - Final, Complete Discharge Medications Scheduled Ergocalciferol (Vitamin D2) (Vitamin D2) 50,000 Units Cap, 50,000 UNIT PO QWEEK, (Reported) SUNDAYS Ferrous Sulfate (Ferrous Sulfate) 325 Mg Tablet, 325 MG PO DAILY, (Reported) Furosemide (Furosemide) 20 Mg Tablet, 20 MG PO BID@ Metoprolol Tartrate (Metoprolol Tartrate) 25 Mg Tablet, 25 MG PO BID Omeprazole (Omeprazole) 20 Mg Cap, 20 MG PO DAILY, (Reported) Sodium Chloride (Sodium Chloride) 1 Gm Tablet, 1 GM PO BID Venlafaxine HCl (Venlafaxine HCl ER) 75 Mg Cap.er.24h, 75 MG PO DAILY, (Reported) Allergies Coded Allergies: NSAIDS (Non-Steroidal Anti-Inflamma (Verified Adverse Reaction, Unknown, BLEEDING ULCERS, 01/07/20) ARVIND SHEN DO Jan 16, 2020 17:10 DARIO DENTON MD Jan 18, 2020 18:18
== END 2020-01-16 16:53 | disposition home health service (06) | DRG 640 ==
LOC: M ED 10:27 → M ED INP 16:57 → ENRESERV 17:09 → M PCU 19:25 → M ICU 20:32 → M MSPAV 01-12 17:44
PROVIDERS: ADMIT Internal Medicine; ATTEND Student in an Organized Health Care Education/Training Program
DX: E87.1 Hypo-osmolality and hyponatremia (principal); G93.41 Metabolic encephalopathy; M62.82 Rhabdomyolysis; E83.42 Hypomagnesemia; I10 Essential (primary) hypertension; K27.9 Peptic ulcer, site unspecified, unspecified as acute or chronic, without hemorrhage or perforation; M54.5 Low back pain; E87.6 Hypokalemia; E83.39 Other disorders of phosphorus metabolism; R29.6 Repeated falls; Z79.899 Other long term (current) drug therapy; Z88.6 Allergy status to analgesic agent; M81.0 Age-related osteoporosis without current pathological fracture; D50.9 Iron deficiency anemia, unspecified

== ENCOUNTER → 2020-03-01 | Outpatient (REF) | payer MEDICARE, OTHER ==
[~2020-03-01] MED LIST changes: +BUTA-198 PO; +CHLO125TA PO; +FERR1TAB8 PO; +FURO20TA2 PO; +METO1TAB87 PO; +SODI1TAB6 PO
[2020-04-28 16:27] LABS: FERRITIN 197 NG/ML (8-252); FOLATE > 24.0 NG/ML; IRON (FE) 49 UG/DL (50-170); PERCENT SATURATION 19.1 % (13.2-45.0); TOTAL IRON BINDING CAPACITY 257 UG/DL (250-450); VITAMIN B12 LEVEL 756 PG/ML
== END ==
LOC: M LAB REF 14:21
PROVIDERS: ATTEND Internal Medicine Nephrology
DX: D64.9 Anemia, unspecified (principal)

== ENCOUNTER → 2020-03-07 | Outpatient (REF) | payer MEDICARE, OTHER ==
[2020-04-12 07:36] LABS: BASO % 0.3 % (0.0-1.0); EOS # 0.1 10^3/uL (0.0-0.5); EOS % 1.6 % (0.0-3.0); HEMATOCRIT 35.2 % (36.0-47.0); HEMOGLOBIN 11.1 g/dl (12.0-15.5); LYMPH # 2.3 10^3/uL (1.5-5.0); LYMPH % 30.7 % (24.0-44.0); MEAN CORPUSCULAR HEMOGLOBIN 33.5 pg (27.0-33.0); MEAN CORPUSCULAR HGB CONC 31.5 g/dl (32.0-36.5); MEAN CORPUSCULAR VOLUME 106.3 fl (80.0-96.0); MONO % 12.8 % (0.0-5.0); NEUTROPHILS # 4.1 10^3/uL (1.5-8.5); NEUTROPHILS % 54.5 % (36.0-66.0); PLATELET COUNT, AUTOMATED 368 10^3/uL (150-450); RED BLOOD COUNT 3.31 10^6/uL (4.00-5.40); WHITE BLOOD COUNT 7.6 10^3/uL (4.0-10.0)
[2020-04-25 08:11] LABS: CALCIUM LEVEL 9.7 MG/DL (8.8-10.2); CREATININE FOR GFR 1.29 MG/DL (0.55-1.30); GLOMERULAR FILTRATION RATE 42.3 (>32); PERCENT SATURATION 15.9 % (13.2-45.0); POTASSIUM SERUM 4.9 MEQ/L (3.5-5.1)
== END ==
LOC: M SFHCLERA 07:04
PROVIDERS: ATTEND Family Medicine
DX: D64.9 Anemia, unspecified (principal); E87.1 Hypo-osmolality and hyponatremia

== ENCOUNTER → 2021-03-25 | Outpatient (REF) | payer MEDICARE, OTHER ==
[~2021-03-25] MED LIST changes: +ERGO500029 PO; -LISI-538 PO; +LISI20TA33 PO
== END ==
LOC: M LAB REF 17:29
PROVIDERS: ATTEND Internal Medicine Nephrology
DX: N18.32 Chronic kidney disease, stage 3b (principal)

== ENCOUNTER → 2022-01-31 | Outpatient (CLI) | payer MEDICARE, OTHER ==
[2022-01-31 16:03] LABS: BASO # 0.1 10^3/uL (0.0-0.2); BASO % 0.8 % (0.0-1.0); EOS # 0.3 10^3/uL (0.0-0.5); EOS % 4.2 % (0.0-3.0); HEMATOCRIT 36.5 % (36.0-47.0); HEMOGLOBIN 11.6 g/dl (12.0-15.5); LYMPH # 1.8 10^3/uL (1.5-5.0); LYMPH % 26.5 % (24.0-44.0); MEAN CORPUSCULAR HEMOGLOBIN 32.5 pg (27.0-33.0); MEAN CORPUSCULAR HGB CONC 31.8 g/dl (32.0-36.5); MEAN CORPUSCULAR VOLUME 102.2 fl (80.0-96.0); MONO # 0.7 10^3/uL (0.0-0.8); MONO % 10.3 % (2.0-8.0); NEUTROPHILS # 3.8 10^3/uL (1.5-8.5); NEUTROPHILS % 57.9 % (36.0-66.0); PLATELET COUNT, AUTOMATED 480 10^3/uL (150-450); RED BLOOD COUNT 3.57 10^6/uL (4.00-5.40); WHITE BLOOD COUNT 6.6 10^3/uL (4.0-10.0)
[2022-01-31 16:34] LABS: ALBUMIN 3.2 GM/DL (3.2-5.2); BILIRUBIN,TOTAL 0.2 MG/DL (0.2-1.0); CALCIUM LEVEL 9.8 MG/DL (8.8-10.2); CREATININE FOR GFR 1.1 MG/DL (0.55-1.30); FREE T4 1.02 NG/DL (0.76-1.46); GLOMERULAR FILTRATION RATE 50.6 (>32); POTASSIUM SERUM 4.2 MEQ/L (3.5-5.1); THYROID STIMULATING HORMONE 0.828 uIU/ML (0.358-3.740); TOTAL PROTEIN 6.8 GM/DL (6.4-8.2)
== END ==
LOC: M WUC 11:25
PROVIDERS: ATTEND Physician Assistant
DX: R53.1 Weakness (principal); R19.7 Diarrhea, unspecified; M54.50 Low back pain, unspecified

== ENCOUNTER → 2022-05-16 | Outpatient (CLI) | payer MEDICARE, OTHER ==
[2022-05-16 20:10] LABS: HEMATOCRIT 28.8 % (36.0-47.0); HEMOGLOBIN 9.1 g/dl (12.0-15.5); MEAN CORPUSCULAR HEMOGLOBIN 32.2 pg (27.0-33.0); MEAN CORPUSCULAR HGB CONC 31.6 g/dl (32.0-36.5); MEAN CORPUSCULAR VOLUME 101.8 fl (80.0-96.0); PLATELET COUNT, AUTOMATED 525 10^3/uL (150-450); RED BLOOD COUNT 2.83 10^6/uL (4.00-5.40); WHITE BLOOD COUNT 7.8 10^3/uL (4.0-10.0)
[2022-05-16 20:50] LABS: ALBUMIN 2.7 GM/DL (3.2-5.2); ALT/SGPT 20 U/L (12-78); BILIRUBIN,TOTAL 0.4 MG/DL (0.2-1.0); BLOOD UREA NITROGEN 19 MG/DL (7-18); CALCIUM LEVEL 8.6 MG/DL (8.8-10.2); CARBON DIOXIDE LEVEL 29 MEQ/L (21-32); CHLORIDE LEVEL 104 MEQ/L (98-107); CREATININE FOR GFR 0.75 MG/DL (0.55-1.30); GLOMERULAR FILTRATION RATE > 60.0 (>32); GLUCOSE, FASTING 84 MG/DL (70-100); NT-PRO BNP 2016 PG/ML (<450); POTASSIUM SERUM 4.6 MEQ/L (3.5-5.1); SODIUM LEVEL 139 MEQ/L (136-145); TOTAL PROTEIN 6.6 GM/DL (6.4-8.2)
== END ==
LOC: M WUC 15:49
PROVIDERS: ATTEND Student in an Organized Health Care Education/Training Program
DX: R60.9 Edema, unspecified (principal)

== ENCOUNTER → 2023-03-24 | Outpatient (CLI) | payer MEDICARE, OTHER | LOC: M WHC 11:17 | PROVIDERS: ATTEND Orthopaedic Surgery | DX: M47.896 Other spondylosis, lumbar region (principal); M85.89 Other specified disorders of bone density and structure, multiple sites ==